=== PATIENT | female | born 1955 | race Caucasian/White ===

== ENCOUNTER → 2021-12-04 14:21 | Outpatient (CLI) | payer BC, SELFPAY ==
--- NOTE | ~2021-12-04 | XR_ITS ---
EXAMINATION: XR shoulder LT min 2V DATE: 12/04/2021 14:47 INDICATION: Left shoulder pain. TECHNIQUE: 4 views of left shoulder were obtained. COMPARISON: None. FINDINGS: Bone alignment is normal. No fracture. There is mild osteoarthritis of glenohumeral joint a nd acromioclavicular joint. IMPRESSION: 1. Mild polyarticular osteoarthritis. Reviewed, dictated and finalized at location B.
== END ==
PROVIDERS: PCP Internal Medicine; Visit Provider Internal Medicine
DX: M25.512 Pain in left shoulder (principal); M19.012 Primary osteoarthritis, left shoulder
CPT/HCPCS: 73030

== ENCOUNTER 2023-04-04 09:07 | Outpatient (CLI) | payer MEDICARE, SELFPAY ==
--- NOTE | ~2023-04-04 | MM_ITS ---
EXAMINATION: MM screening enma BI w treasure HISTORY: Screening TECHNIQUE: Craniocaudal and mediolateral oblique 3-D tomosynthesis images were obtained and synthetic 2-D images were generated. CAD analysis was submitted and interpreted. COMPARISON: No prior mammogram is available for comparison at this institution. BREAST PARENCHYMAL COMPOSITION: There are scattered areas of fibroglandular density. FINDINGS: There is no evidence of suspicious mass, calcification, or architectural distortion to sugg est malignancy in either breast. There has been no suspicious interval change. IMPRESSION: 1. No mammographic evidence of malignancy. 2. Recommend routine screening mammography in one year. BI-RADS Category 1: Negative Reviewed, dictated and finalized at location A.
== END 2023-04-04 09:08 | disposition home or self-care (01) ==
PROVIDERS: PCP Internal Medicine; Visit Provider Internal Medicine
DX: Z12.31 Encounter for screening mammogram for malignant neoplasm of breast (principal)
CPT/HCPCS: 77063; 77067

== ENCOUNTER 2023-12-18 18:33 | Inpatient (IN) | payer MEDICARE, SELFPAY ==
--- NOTE | ~2023-12-18 | US_ITS ---
US right upper quadrant INDICATION: Acute cholecystitis PROCEDURE: Realtime right upper abdominal ultrasound. COMPARISON: No prior studies for comparison. FINDINGS: The pancreas is normal without focal mass or pancreatic ductal dilation. Liver echotexture is normal without focal mass or intrahepatic biliary dilatation. There is normal directional flow i n the portal vein. Gallbladder contains stones. Gallbladder wall is thickened measuring 7 mm. Common bile duct measures 5 mm mm. Positive sonographic Renner's sign. IMPRESSION: 1: Cholelithiasis with gallbladder wall thickening and positive sonographic Renner's sign. Findings c ompatible with cholecystitis. Clinically correlate. Reviewed, dictated and finalized at location B. IMPRESSION: 1: Cholelithiasis with gallbladder wall thickening and positive sonographic Mur phy's sign. Findings compatible with cholecystitis. Clinically correlate.
--- NOTE | ~2023-12-18 | CT_ITS ---
EXAMINATION: CT abdomen pelvis w con DATE: 12/18/2023 20:31 INDICATION: Right upper quadrant abdominal pain, nausea, vomiting. TECHNIQUE: Computed tomography (CT) of the abdomen and pelvis was performed with 100 CC Omnipaque 350 intravenous contrast. Automated exposure control and iterative reconstruction technique were employe d. Exam dose: 869.64 mGy-cm total exam DLP. COMPARISON: None. FINDINGS: There is prominent multifocal atelectasis and/or consolidation at the bilateral lung bases. Cardiomegaly. Coronary artery calcifications. No pericardial or pleural effusion. There is severe fat stranding over a very large area around the gallbladder and hepatic flexure of th e colon. There is thickening of the anterior pararenal and lateroconal fascia on the right. There is gallbladder wall thickening. There are multiple gallstones. The gallbladder appears distended. The fi ndings are suggestive of acute cholecystitis with very prominent surrounding inflammatory change. The re is adjacent thickening of the wall of the hepatic flexure of the colon, without inflammatory collazo e around the hepatic flexure of the colon. Differential diagnosis includes colitis of the hepatic fle xure of the colon. However, I believe that the changes of the hepatic flexure of the colon are most l ikely secondary to the adjacent severe acute cholecystitis. No hepatic, splenic, pancreatic, adrenal or renal space-occupying mass lesion, urinary tract calculus or hydroureteronephrosis. There is atherosclerotic calcification with normal caliber of the abdominal aorta, iliac and femoral arteries. No intraperitoneal or retroperitoneal or pelvic mass lesion or adenopathy or ascites. The uterus and adnexal areas and urinary bladder are unremarkable. No bowel obstruction or intraperitoneal free air. Normal appendix. Small fat-containing umbilical hernia. Small supraumbilical fat-containing ventral abdominal wall her belkis. Small fat-containing inguinal hernias. Benign hemangioma of T9 vertebral body and L2 vertebral body. Moderate anterior wedge compression fracture of T11, mild anterior wedge compression fracture deformi ty of T12.. Severe degenerative disc disease at L4-5. No suspicious osteolytic or osteoblastic lesions are noted. IMPRESSION: Severe inflammatory changes around the gallbladder and hepatic flexure of the colon, wit h gallbladder wall thickening, multiple gallstones, gallbladder distention. The findings are most sug gestive of acute cholecystitis. The soft tissue thickening of the hepatic flexure of the colon in the pericolic fat stranding are tho ught to be secondary to the adjacent severe acute cholecystitis. Colitis however is not excluded. The remainder the colon however is unremarkable, again favoring acute cholecystitis as cause for the shaina nges in the colon and hepatic flexure. Reviewed, dictated and finalized at Location A. Reviewed, dictated and finalized at location A. IMPRESSION: Severe inflammatory changes around the gallbladder and hepatic fle xure of the colon, with gallbladder wall thickening, multiple gallstones, gallb ladder distention. The findings are most suggestive of acute cholecystitis. The soft tissue thickening of the hepatic flexure of the colon in the pericolic fat stranding are thought to be secondary to the adjacent severe acute cholecy stitis. Colitis however is not excluded. The remainder the colon however is unr emarkable, again favoring acute cholecystitis as cause for the changes in the c olon and hepatic flexure.
--- NOTE | ~2023-12-18 | XR_ITS ---
XR chest 1V portable DATE: 12/18/2023 21:30 INDICATION: Preoperative evaluation TECHNIQUE: Portable upright AP chest on December 18, 2023 at 2124 hours COMPARISON: None FINDINGS: There is prominent bibasilar infiltrate and subsegmental atelectasis. Mild elevation right diaphragm. Normal heart size. Mild aortic unfolding. The orogastric angles are not sharply defined. Cannot exclude right pleural effusion. No pneumothorax . Osteophytic change is demonstrated at the right glenohumeral joint. Osteopenia. IMPRESSION: Prominent bibasilar infiltrate and/or atelectasis Reviewed, dictated and finalized at location A.
--- NOTE | ~2023-12-18 | US_ITS ---
EXAMINATION: US perc cholecystostomy w imag DATE: 12/19/2023 12:05 INDICATION: Acute cholecystitis TECHNIQUE: The procedure including the risks and benefits was discussed with the patient. Risks discu ssed included bleeding including hemorrhage and bile peritonitis. Oral and written consent were obtai debo. The patient was confirmed to be receiving appropriate antibiotic coverage. The skin overlying t he liver and gallbladder was prepped and draped in usual sterile fashion. Anesthetic was administere d with 1% lidocaine subcutaneously. Conscious sedation was provided by the anesthesiology service. An 8.5 Fr catheter was inserted through liver parenchyma into the gallbladder by trocar technique. Th e metal stiffener and trocar needle were removed, and the pigtail tip was locked. Bile was aspirated and sent for culture. The catheter was stitched to the skin with suture. Antibiotic ointment and a st erile dressing were applied. The catheter was then attached to gravity drainage and was draining billy tional likely mild at the conclusion of the procedure. There were no immediate complications. FINDINGS: The gallbladder is dilated with wall thickening and stones and sludge, consistent with acut e cholecystitis. Ultrasound images demonstrate the catheter within the gallbladder. 50 mL blackish co lored bile was aspirated and sent to lab for Gram stain and cultures. Final images show the formed p igtail catheter tip in the gallbladder. IMPRESSION: 1. Successful ultrasound-guided cholecystostomy tube placement. 2. 50 mL bile was sent for aerobic, anaerobic, and fungal cultures. 3. The catheter will be managed by Dr. Mi. A catheter cholangiogram may be performed not less than 48 hours after tube placement if clinically indicated to assess cystic duct patency. If cholecystect cade is not eventually performed and the infectious episode has resolved, the tube may be removed over a guidewire, preferably not less than 3 weeks after placement to allow time for a mature catheter tr act to form to prevent bile leakage and peritonitis. Reviewed, dictated and finalized at location A. IMPRESSION: 1. Successful ultrasound-guided cholecystostomy tube placement. 2. 50 mL bile was sent for aerobic, anaerobic, and fungal cultures. 3. The catheter will be managed by Dr. Mi. A catheter cholangiogram may be pe rformed not less than 48 hours after tube placement if clinically indicated to assess cystic duct patency. If cholecystectomy is not eventually performed and the infectious episode has resolved, the tube may be removed over a guidewire, preferably not less than 3 weeks after placement to allow time for a mature ca theter tract to form to prevent bile leakage and peritonitis.
[2023-12-18 18:40] VITALS: BP 154/69; PULSE 104; RESP 23; TEMP 36.8; O2SAT 96
[2023-12-18] MEDS: SODIUM CHLORIDE 0.9% IV 1,000 ML 999 ML IV CONT (18:57)
[2023-12-18] MEDS: ONDANSETRON INJ 4 MG/2 ML VIAL IV PUSH (18:57)
[2023-12-18] MEDS: MORPHINE SULFATE (*CRX) 4 MG/ML INJ IV PUSH (18:57)
--- NOTE | 2023-12-18 19:10 | PC.NURSE ---
Assumed care of pt from KEYSHA Smith at this time. Pt resting comfortably in bed with call light within reach.
[2023-12-18 19:28] LABS: Basophils Percent Auto 0.2 % (0.2-1.2); Eosinophils Percent Auto 0.2 % (0-4.4); Hematocrit 40.3 % (37.0-47.0); Hemoglobin 13.5 g/dL (12.0-15.0); Immature Granulocyte Absolute 0.19 K/mm3 (0.00-0.031); Immature Granulocyte Percent A 1.1 % (0-0.5); Lymphocytes Absolute Auto 0.95 K/mm3 (0.9-3.2); Lymphocytes Percent Auto 5.7 % (18.3-44.2); Mean Corpuscular HGB Conc 33.5 g/dl (32-36); Mean Corpuscular Hemoglobin 30.9 pg (26-34); Mean Corpuscular Volume 92.2 fl (80-100); Mean Platelet Volume 10.5 fl (7.4-10.4); Monocytes Percent Auto 6.1 % (2.6-8.5); Neutrophils Absolute Auto 14.6 K/mm3 (1.3-6.7); Neutrophils Percent Auto 86.7 % (45.5-73.1); Platelet Count Result 225 k/mm3 (150-375); Red Blood Count 4.37 M/mm3 (4.2-5.4); Red Cell Distribution Width 13.1 % (11.5-14.5); White Blood Count 16.8 K/mm3 (4.5-10.0)
[2023-12-18 19:41] LABS: Alanine Aminotransferase 26 U/L (6-35); Albumin Level 3.7 g/dL (3.5-5.1); Alkaline Phosphatase 132 U/L (38-126); Anion Gap 9 mmol/L (4-12); Aspartate Amino Transferase 27 U/L (14-36); Bilirubin,Total 1.2 mg/dL (0.2-1.3); Blood Urea Nitrogen 19 mg/dL (7-17); Calcium 7.8 mg/dL (8.4-10.2); Carbon Dioxide 22 mmol/L (22-30); Chloride 97 mmol/L (98-107); Estimated CRCL calculation 67 ml/min; Estimated Glomerular Filt Rate 55; Glucose 129 mg/dL (65-110); Lactic Acid Reflex 1.4 mmol/L (0.7-2.0); Lipase 17 U/L (23-300); Potassium 3.2 mmol/L (3.4-5.0); Sodium 128 mmol/L (137-145)
--- NOTE | 2023-12-18 20:34 | ED.ABDPAIN ---
HPI - Abdominal Pain General Chief Complaint: Abdominal Pain Stated Complaint: vomiting Time Seen by Provider: 12/18/23 18:38 Source: patient Mode of arrival: ambulatory Limitations: no limitations History of Present Illness HPI narrative: 68-year-old with a history of hypothyroidism here with the complains of 2 day history of nausea and vomiting and right upper quadrant pain. Patient states that she may have had low-grade fever. She denies any diarrhea. No history of any cough or shortness of breath. MD elicited complaint: abdominal pain Onset (ago): day(s) (2) Pain Consistency: constant Location: RUQ Severity: moderate Quality: aching Radiation: RUQ Migration to: no migration Exacerbating factors: nothing Associated symptoms: denies other symptoms Related Data Home Medications Medication Instructions Recorded Confirmed cholecalciferol (vitamin D3) 10 10 mcg PO DAILY 07/18/20 10/24/23 mcg (400 unit) capsule zinc 50 mg tablet 50 mg PO DAILY 07/18/20 10/24/23 estradiol PO 10/23/23 10/24/23 liothyronine 5 mcg tablet 5 mcg PO DAILY 10/23/23 10/24/23 prasterone (dhea) 25 mg capsule 25 mg PO DAILY 10/23/23 10/24/23 (DHEA) progesterone micronized 200 mg 200 mg PO QHS 10/23/23 10/24/23 capsule s-adenosnyl 200 mg-collagen 13.33 cap PO 10/23/23 10/24/23 [id number] capsule DR (EB-A7 DR) sodium hyaluronate (viscosup) 10 16.8 mg intra-articular .every 6 10/23/23 10/24/23 mg/mL intra-articular syringe months Allergies Allergy/AdvReac Type Severity Reaction Status Date / Time oxycodone AdvReac Confusion Verified 12/18/23 19:03 Review of Systems Review of Systems: All systems reviewed & are unremarkable except as noted in HPI and below Constitutional: Constitutional: Reports no additional constitutional complaints Eyes: Eyes: Reports no additional eye complaints ENT: Reports system reviewed and no additional complaints, except as documented Cardiovascular: Cardiovascular: Reports no additional cardiovascular complaints Respiratory: Respiratory: Reports no additional respiratory complaints Gastrointestinal: Gastrointestinal: Reports as per HPI Genitourinary: Genitourinary: Reports no additional female genitourinary complaints Musculoskeletal: Musculoskeletal: Reports no additional musculoskeletal complaints PMFSH Past Medical History Medical History Compression fracture Family History Family History Father Patient's father is Social History Social History Smoking status: Never smoker Second hand tobacco smoke exposure: No Alcohol intake: never Substance use: never Lack of Transportation: No Lack of Food: Never True Current Housing: I Have Housing Concerned About Future Housing: No Difficulty Paying Gas/Electric Bills: No Difficulty Paying for Meds: No Currently Unemployed: No Education: Bachelor's Degree Difficulty w/ Childcare or Family Care: No Exam Narrative: GENERAL: Well-appearing, well-nourished, and in no acute distress. HEAD: Normocephalic, atraumatic. EYES: PERRLA and EOMI. ENT: Nares clear, no rhinorrhea or epistaxis. Mucous membranes moist. NECK: Supple. CHEST: Clear to auscultation. No respiratory distress. HEART: Regular rate and rhythm. No murmur heard. Normal peripheral pulses. ABDOMEN: Soft, tenderness in the right upper quadrant and epigastric area, nondistended, normal active bowel sounds. EXTREMITIES: Normal range of motion. No edema. SKIN: Warm, dry, no rash. NEURO: No focal deficits. Alert and oriented x3. PSYCH: Normal mood and affect. Course Course Emergency Course: Pain has slightly improved with the IV morphine and nausea well controlled with Zofran. She feels slightly better I did inform her about the lab work, CT findings. D
[2023-12-18 21:02] VITALS: BP 128/60; PULSE 88; RESP 16; O2SAT 95
[2023-12-18] MEDS: HYDROmorphone HCL INJ (*CRX) 1 MG/ML SYR IV PUSH (21:32)
[2023-12-18] MEDS: PIPERACILLN/TAZ 3.375GM/NS50ML 3.375 GM/50 ML BAG IVPB (21:32)
[2023-12-18 21:39] VITALS: BP 125/64; PULSE 92; RESP 17; O2SAT 95
[2023-12-18 21:44] VITALS: BP 125/64; PULSE 92; RESP 16; O2SAT 94
[2023-12-18 21:45] LABS: Appearance Urine Cloudy (Clear); Bacteria Urine 4+ /hpf; Bilirubin Urine Negative (Negative); Blood Urine 1+ (Negative); Color Urine Yellow (Yellow); Glucose Urine UA Trace mg/dL (Negative); Ketones Urine 1+ mg/dL (Negative); Leukocyte Esterase Ur Trace LEU/UL (Negative); Need Manual Microscopic Reviewed; Nitrate Urine Negative (Negative); Non Pathogenic Casts 0-2; Protein Urine 2+ mg/dL (Negative); Squamous Epithelial Cell Urine Moderate /hpf (Few); pH Urine 6.5 (5.0-9.0)
[2023-12-18 21:50] LABS: Specific Grav Ur 1.048 (1.001-1.035)
[2023-12-18 21:51] LABS: Add Urine Microscopic? YES
[2023-12-18 22:00] VITALS: BP 120/53; PULSE 92; RESP 18; TEMP 37.3; O2SAT 93; BMI 35.6
[2023-12-18] MEDS: SODIUM CHLORIDE 0.9% IV 1,000 ML 125 ML IV CONT (22:00)
--- NOTE | 2023-12-18 22:00 | ADMGEN ---
This patient, Debbie Max, was admitted to Medical Room 249-01. Patient/family oriented to hospital policies and general routines including ID bracelet, bed and alarms, visiting hours, pain management, procedures, bathroom and other care routines, personal items, smoking policy, room service/diet, and visiting hours. Information on how to activate the Rapid Response Team has been discussed. Patient/Family are encouraged to report perceived risks to care and to ask questions if they do not understand what they are told or what they should do.
[2023-12-18 22:34] LABS: INR 1.1
[2023-12-18 23:19] VITALS: TEMP 37.1
[2023-12-19] MEDS: HYDROmorphone HCL INJ (*CRX) 1 MG/ML SYR 0.5 MG IV PUSH ×2 (02:41→06:21)
[2023-12-19] MEDS: PIPERACILLN/TAZ 3.375GM/NS50ML 3.375 GM/50 ML BAG IVPB ×4 (02:41→20:02)
[2023-12-19] MEDS: ONDANSETRON INJ 4 MG/2 ML VIAL IV PUSH (02:41)
[2023-12-19 04:55] LABS: Basophils Percent Auto 0.1 % (0.2-1.2); Eosinophils Percent Auto 0.2 % (0-4.4); Hematocrit 35.8 % (37.0-47.0); Hemoglobin 11.9 g/dL (12.0-15.0); Immature Granulocyte Absolute 0.23 K/mm3 (0.00-0.031); Immature Granulocyte Percent A 1.6 % (0-0.5); Lymphocytes Absolute Auto 0.71 K/mm3 (0.9-3.2); Lymphocytes Percent Auto 5.1 % (18.3-44.2); Mean Corpuscular HGB Conc 33.2 g/dl (32-36); Mean Corpuscular Hemoglobin 31.2 pg (26-34); Mean Corpuscular Volume 93.7 fl (80-100); Mean Platelet Volume 9.6 fl (7.4-10.4); Monocytes Percent Auto 6.9 % (2.6-8.5); Neutrophils Percent Auto 86.1 % (45.5-73.1); Platelet Count Result 219 k/mm3 (150-375); Red Blood Count 3.82 M/mm3 (4.2-5.4); Red Cell Distribution Width 13.2 % (11.5-14.5)
[2023-12-19 05:07] LABS: Alanine Aminotransferase 35 U/L (6-35); Albumin Level 3.1 g/dL (3.5-5.1); Alkaline Phosphatase 192 U/L (38-126); Anion Gap 7 mmol/L (4-12); Aspartate Amino Transferase 41 U/L (14-36); Blood Urea Nitrogen 17 mg/dL (7-17); Calcium 7.1 mg/dL (8.4-10.2); Carbon Dioxide 22 mmol/L (22-30); Chloride 102 mmol/L (98-107); Estimated CRCL calculation 66 ml/min; Estimated Glomerular Filt Rate 55; Glucose 117 mg/dL (65-110); Lipase 14 U/L (23-300); Potassium 3.3 mmol/L (3.4-5.0); Sodium 131 mmol/L (137-145)
[2023-12-19 05:10] VITALS: BP 113/58; PULSE 89; RESP 18; TEMP 37.1; O2SAT 94
[2023-12-19] MEDS: SODIUM CHLORIDE 0.9% IV 1,000 ML 125 ML IV CONT (06:16)
[2023-12-19 08:00] VITALS: O2SAT 94
[2023-12-19] MEDS: HYDROmorphone HCL INJ (*CRX) 1 MG/ML SYR IV PUSH ×4 (08:23→20:01)
[2023-12-19] MEDS: POTASSIUM CHLORIDE INJ 40 MEQ in SODIUM CHLORIDE 0.9% IV 500 ML 130 MEQ IVPB (09:03)
--- NOTE | 2023-12-19 09:22 | PM.IMHP ---
H&P: HPI History of Present Illness Date/Time: 12/19/23 09:22 Chief Complaint: Right upper quadrant abdominal pain Narrative: This is a 68-year-old woman who presented to the ER last night with complaints of right upper quadrant abdominal pain, nausea, and vomiting for 5 days. He was at a wedding Saturday and ate barbecue ribs and brisket for dinner. That night, she developed nausea and vomiting. She had multiple episodes of vomiting with bilious-appearing emesis. This continued through the next day, but began to improved by Saturday. She reports noticing RUQ abdominal pain within the next 1-2 days after the vomiting started. her pain was intensifying and she has been unable to tolerate much oral intake. She felt feverish but had not taken her temperature. Due to persistent symptoms, she came into the ER yesterday evening. Labs showed a white blood cell count 21386, sodium 128, potassium 3.2, total bilirubin 1.2, AST 27, ALT 26, alk phos 132, lipase 17. CT scan of the abdomen and pelvis showed severe inflammatory changes around the gallbladder and hepatic flexure of the colon with gallbladder wall thickening, multiple gallstones, and gallbladder distention. Findings are suggestive of severe acute cholecystitis. She was started on IV Zosyn and is now seen on the medical floor. She has been made NPO with IV fluids. She had a chest x-ray that showed prominent bibasilar infiltrate and/or atelectasis. She reports her nausea and vomiting resolved a few days ago. Denies any nausea this morning. Continues to have right upper quadrant abdominal pain and is holding her abdomen with her right hand during my evaluation. She reports her pain is much better after receiving the IV Dilaudid. Pain is aggravated by deep breathing. Labs this morning show white blood cell count was down to 14,000. LFTs showed her AST was up slightly to 41 and alk-phos 192. No previous abdominal surgeries. Review of Systems Review of Systems: All systems reviewed & are unremarkable except as noted in HPI and below Constitutional: Constitutional: Reports as per HPI, Reports no additional constitutional complaints, Denies fatigue, Reports fever(s) and Reports poor appetite Eyes: Eyes: Reports no additional eye complaints ENT: Reports system reviewed and no additional complaints, except as documented, Denies dizziness and Denies headache(s) Cardiovascular: Cardiovascular: Reports no additional cardiovascular complaints, Denies chest pain and Denies leg edema Respiratory: Respiratory: Reports no additional respiratory complaints, Denies cough and Denies dyspnea Gastrointestinal: Gastrointestinal: Reports as per HPI, Reports no additional gastrointestinal complaints, Reports abdominal pain, Denies melena, Denies hematochezia, Denies coffee ground emesis, Denies constipation, Reports nausea, Reports vomiting and Denies hematemesis Genitourinary: Genitourinary: Reports no additional female genitourinary complaints and Denies dysuria Musculoskeletal: Musculoskeletal: Reports no additional musculoskeletal complaints and Denies abnormal gait Integumentary/Breasts: Skin/Breast: Reports system reviewed and no additional complaints, except as docu Neurologic: Reports system reviewed and no additional complaints, except as documented, Denies headache(s), Denies focal weakness, Denies numbness and Denies tingling PMFSH Past Medical History Medical History Compression fracture Hyperlipidemia Hypothyroidism Surgical History Surgical History (Updated 12/19/23 @ 09:31 by CHAIM Villasenor) History of elbow surgery Family History Family History Father Patient's father is Congestive heart failure Mother Social History Social History Smoking status: Never smoker Second hand toba
[2023-12-19 14:00] VITALS: BP 137/63; PULSE 95; RESP 21; TEMP 37; O2SAT 94
--- NOTE | 2023-12-19 18:09 | PC.NURSE ---
Addendum entered by Edel Cyr RN 12/19/23 18:10: wrong patient Original Note: 1730 Patient c/o SOB, audible wheezes noted. O2 2l sat 93%, Dr Alvares notified, bumex iv ordered.
[2023-12-19 20:09] VITALS: BP 124/53; PULSE 86; RESP 18; TEMP 37.3; O2SAT 94
[2023-12-20] VITALS (8 sets, daily range): BP systolic 124–138; BP diastolic 58–98; PULSE 72–78; RESP 18; TEMP 36.6–37.7; O2SAT 95–100
[2023-12-20] MEDS: SODIUM CHLORIDE 0.9% IV 1,000 ML 100 ML IV CONT (00:41)
[2023-12-20] MEDS: PIPERACILLN/TAZ 3.375GM/NS50ML 3.375 GM/50 ML BAG IVPB ×4 (02:58→20:13)
[2023-12-20] MEDS: HYDROmorphone HCL INJ (*CRX) 1 MG/ML SYR IV PUSH (03:31)
[2023-12-20 05:04] LABS: Basophils Percent Auto 0.2 % (0.2-1.2); Eosinophils Absolute Auto 0.1 K/mm3 (0-0.3); Eosinophils Percent Auto 1.3 % (0-4.4); Hematocrit 33.8 % (37.0-47.0); Hemoglobin 10.7 g/dL (12.0-15.0); Immature Granulocyte Percent A 0.9 % (0-0.5); Lymphocytes Absolute Auto 0.97 K/mm3 (0.9-3.2); Mean Corpuscular HGB Conc 31.7 g/dl (32-36); Mean Corpuscular Hemoglobin 30.2 pg (26-34); Mean Corpuscular Volume 95.5 fl (80-100); Mean Platelet Volume 9.2 fl (7.4-10.4); Monocytes Percent Auto 8.9 % (2.6-8.5); Neutrophils Absolute Auto 8.6 K/mm3 (1.3-6.7); Neutrophils Percent Auto 79.7 % (45.5-73.1); Platelet Count Result 228 k/mm3 (150-375); Red Blood Count 3.54 M/mm3 (4.2-5.4); Red Cell Distribution Width 13.3 % (11.5-14.5); White Blood Count 10.8 K/mm3 (4.5-10.0)
[2023-12-20 05:13] LABS: Alanine Aminotransferase 48 U/L (6-35); Alkaline Phosphatase 262 U/L (38-126); Anion Gap 7 mmol/L (4-12); Aspartate Amino Transferase 41 U/L (14-36); Blood Urea Nitrogen 12 mg/dL (7-17); Calcium 6.9 mg/dL (8.4-10.2); Carbon Dioxide 22 mmol/L (22-30); Chloride 103 mmol/L (98-107); Estimated CRCL calculation 66 ml/min; Estimated Glomerular Filt Rate 55; Glucose 114 mg/dL (65-110); Magnesium 2.4 mg/dL (1.6-2.3); Potassium 3.4 mmol/L (3.4-5.0); Sodium 132 mmol/L (137-145)
--- NOTE | 2023-12-20 11:45 | WPDPN ---
Progress Note: A&P Assessment and Plan (1) Acute cholecystitis: Code(s): K81.0 - Acute cholecystitis Status: Acute Assessment and Plan: Due to the severe nature inflammation of gallbladder phlegmon right upper quadrant was decided that additional treatment would be best done with compression of gallbladder with a ultrasound-guided percutaneous cholecystostomy tube placement done in Radiology. This was successfully done yesterday. She feels better today but still having some mild right upper quadrant tenderness. White blood cell count is decreased to 15,000 down to 11,000. liver enzymes are stable until the bilirubin is normal. Will continue on IV antibiotics today. She can be advanced to low-fat diet. Likely home tomorrow on course of oral antibiotics with a cholecystostomy tube in place. Within see her back in the office next week and then plan out an interval laparoscopic cholecystectomy in 4 to 6 weeks. Subjective Date/time seen: 12/20/23 11:45 Interval history: Patient feels better today. Less right upper quadrant pain. Last dose of IV pain medication was about 6hours ago. No nausea or vomiting. She did tolerate some low-fat food today after tolerating clear liquids yesterday. Ultrasound-guided placement of cholecystostomy tube was successfully yesterday. Cultures of the gallbladder bile is pending. White blood cell count decreased from 15,000 down to 10,800 today. Liver enzymes show mild elevations in AST ALT and alkaline phosphatase but total bilirubin is still normal at 1. . Exam GI: Other: Abdomen is soft and minimally distended. Still has some mild tenderness to palpation right upper quadrant. No rebound tenderness is noted today. Cholecystostomy tube drain in place. Output from drain is typical appearing non purulent bile. Is also nonbloody. Objective Data Vital Signs Vital Signs: Vital Signs - 24 hr 12/19/23 14:00 12/19/23 20:09 12/20/23 00:30 Temperature 37.0 C 37.3 C 37.7 C H Pulse Rate 95 86 Respiratory Rate 21 H 18 Blood Pressure 137/63 124/53 L Pulse Oximetry 94 94 Oxygen Delivery 12/20/23 05:00 12/20/23 05:55 12/20/23 08:03 Temperature 36.6 C 37.3 C Pulse Rate 78 Respiratory Rate 18 Blood Pressure 124/98 H Pulse Oximetry 95 Oxygen Delivery Room Air 12/20/23 08:45 Temperature Pulse Rate Respiratory Rate Blood Pressure Pulse Oximetry 96 Oxygen Delivery Room Air Intake/Output Intake/Output: Intake & Output 12/17/23 12/18/23 12/19/23 12/20/23 23:59 23:59 23:59 23:59 Intake Total 1000 3110 460 Output Total 525 500 Balance 1000 2585 -40 Meds/Results Medications: Active Medications Generic Name Dose Route Start Last Admin Trade Name Freq PRN Reason Stop Dose Admin Hydromorphone HCl 1 mg 12/19/23 07:37 12/20/23 03:31 Hydromorphone Hcl Inj (*Crx) 1 Mg/Ml Syr IV PUSH 1 mg Q4H PRN Administration Pain Rated 7-10 Sodium Chloride 1,000 mls @ 100 mls/hr 12/18/23 21:15 12/20/23 00:41 Normal Saline Iv IV CONT 100 mls/hr .Q10H ERICH Administration Piperacillin/Tazobactam/Dextrose 3.375 gm in 50 mls @ 100 mls/hr 12/19/23 03:00 12/20/23 09:46 Zosyn 3.375 Gm/Ns 50 Ml IVPB Infused Q6H ERICH Infusion Ondansetron HCl 4 mg 12/18/23 21:15 12/19/23 02:41 Ondansetron Inj 4 Mg/2 Ml Vial IV PUSH 4 mg Q4H PRN Administration Nausea Radiology Results: ITS Impressions Abdomen/Pelvis CT 12/18/23 20:36 IMPRESSION: Severe inflammatory changes around the gallbladder and hepatic flexure of the colon, with gallbladder wall thickening, multiple gallstones, gallbladder distention. The findings are most suggestive of acute cholecystitis. The soft tissue thickening of the hepatic flexure of the colon in the pericolic fat stranding are thought to be secondary to the adjacent severe acute cholecystitis. Colitis however is not excluded. The remainder the colon however is unremarkable,
[2023-12-20] MEDS: HYDROcodone/acetaminophen (*CRX) 5-325 MG TABLET 1 TAB PO ×2 (15:14→19:22)
[2023-12-21] MEDS: HYDROcodone/acetaminophen (*CRX) 5-325 MG TABLET 1 TAB PO ×2 (01:11→09:56)
[2023-12-21] MEDS: PIPERACILLN/TAZ 3.375GM/NS50ML 3.375 GM/50 ML BAG IVPB ×2 (03:04→08:10)
[2023-12-21 04:50] VITALS: BP 129/60; PULSE 77; RESP 18; TEMP 36.8; O2SAT 97
[2023-12-21 06:00] VITALS: BP 129/60; PULSE 77; RESP 18; TEMP 36.8; O2SAT 97
--- NOTE | 2023-12-21 09:42 | PM.DS ---
DS: Admitting Diagnosis Discharge Date 12/21/2023 Admitting Diagnosis Acute cholecystitis secondary to cholelithiasis DS: Discharge Diagnosis Discharge Diagnosis (1) Acute cholecystitis due to biliary calculus: Code(s): K80.00 - Calculus of gallbladder with acute cholecystitis without obstruction Status: Acute Assessment and Plan: Acute cholecystitis improving after placement of cholecystostomy tube. Patient will be discharged home today on oral antibiotics. Plan for interval laparoscopic cholecystectomy and about 4 to 6 weeks. DS: Summary Hospital Course Reason for hospitalization: Acute cholecystitis secondary to cholelithiasis Hospital Course: Patient can [facility] on 12/18/2023 where she was evaluated emergency room for severe right upper quadrant abdominal pain associated nausea and vomiting. She had pain for about 4 days prior to coming to the emergency room and thought she just had some food poisoning. In the emergency room showed an elevated white blood count [id number]. She was not hypotensive or tachycardic. She was started on IV antibiotics and admitted to surgical floor. CT scan abdomen pelvis showed a dilated inflamed appendix with reactive inflammation of the hepatic flexure of the colon and a pretty severe phlegmon in the right upper quadrant. Gallstones were noted on CT scan. She was kept NPO and surgical given IV pain medication as needed. She is placed on Zosyn for IV antibiotics. Today after she was admitted pain was somewhat improved but still have moderate to severe right upper quadrant pain with some localized peritoneal signs. An abdominal ultrasound was performed again showing a very thickened gallbladder wall and cholelithiasis consistent with acute cholecystitis. Liver enzymes were mildly elevated but total bilirubin was normal. Lipase was normal as well. I discussed with the patient the risk of converting to an open cholecystectomy given the degree of inflammation and I recommended proceeding with a decompression of the gallbladder with a image guided cholecystostomy tube placement in Radiology. She agreed with my plan and so later in the day she had a ultrasound guided cholecystostomy tube placement in Radiology without difficulty. Some of the bile was sent to microbiology. Preliminary results on the Gram stain from the bile showed some Gram-negative organisms. Patient is also have gram-negative organisms in her urine on urine culture from admission in the emergency room. However she does not complain of any dysuria, hematuria, or urinary frequency. Her white blood count decreased to 10,800 today after admission. She was then started on clear liquids which she tolerated well and she was advanced to a low-fat diet later today. On hospital day 3 she is doing well with a low-fat diet. Her pain was well controlled only with [place] for oral narcotic pain medication. She remained on Zosyn while admitted but will be discharged home on Augmentin. Her cholecystostomy tube was then placed in the dressing was intact and dry. Output from the drain was typical nonpurulent and nonbloody bile. She was afebrile and vital signs are stable. Her abdominal exam revealed much less right upper quadrant tenderness. The patient wanted to go home. The patient is discharged home. She is felt to be my office next week. She is to call for an appointment. Instructions for drain care and activity we are and her discharge orders. Prescriptions for [place] and Augmentin were sent to her pharmacy. She is to continue taking all her home medications. Status at Discharge Functional status at discharge: independent ambulation Overall status at discharge: patient is progressing back to baseline Time Spent with Patient Time attestation: Total time spent providing and/or coordinating discharge services: Time spent: Less than 30 minutes Exam GI: Other: Abdomen is obese but soft. Cholecystostomy tube drain in the right u
== END 2023-12-21 10:15 | disposition home or self-care (01) | DRG 446 ==
LOC: ANHED 21:22 → ANH2MED 21:30
PROVIDERS: Nurse Practitioner Family; Admitting Provider Surgery; Emergency Provider Family Medicine; PCP Internal Medicine; Visit Provider Surgery
DX: K80.00 Calculus of gallbladder with acute cholecystitis without obstruction (principal); B96.89 Other specified bacterial agents as the cause of diseases classified elsewhere; E03.9 Hypothyroidism, unspecified; E78.5 Hyperlipidemia, unspecified; E66.9 Obesity, unspecified; Z68.35 Body mass index [BMI] 35.0-35.9, adult
CPT/HCPCS: 36415; 47490; 71045; 74177; 76705; 80053; 81001; 83605; 83690; 83735; 85025; 85610; 87070; 87075; 87077; 87086; 87088; 87102; 87181; 87186; 87205; 87206; 96361; 96374; 96375; 99285; A9270; C1729; J1170; J2270; J2405; J2543; J3480; J7030; J7040; Q9967

== ENCOUNTER 2024-01-03 09:56 | Outpatient (CLI) | payer MEDICARE, SELFPAY ==
--- NOTE | ~2024-01-03 | XR_ITS ---
EXAMINATION: XR catheter cholangiogram DATE: 01/03/2024 10:36 INDICATION: Cholelithiasis and acute cholecystitis post cholecystostomy tube placement TECHNIQUE: Multiple fluoroscopic images of the right upper quadrant were obtained during injection of 20 mL Omnipaque 350 contrast into the patient's percutaneous cholecystostomy tube. The tube was flus hed with 10 mL sterile saline and reattached to gravity drainage at the conclusion of the procedure. FINDINGS: Injected contrast outlines an approximate 4 x 3 cm gallstone within the decompressed gallbladder. The loop of the cholecystostomy tube is positioned along side the gallstone at the fundus of the gallbla dder. Contrast extends through the cystic duct into the common bile duct which measures up to 7 mm in maximal diameter, tapering smoothly at the ampulla. There is free spillage of contrast into the duod enum with no evident choledocholithiasis. There is also some reflux of contrast into the normal-appea ring central intrahepatic biliary tree. IMPRESSION: 1. Percutaneous cholecystostomy tube and large gallstone within the decompressed gallbladder with pat ent cystic and common bile ducts with no choledocholithiasis. Reviewed, dictated and finalized at location A. IMPRESSION: 1. Percutaneous cholecystostomy tube and large gallstone within the decompresse d gallbladder with patent cystic and common bile ducts with no choledocholithia sis.
== END 2024-01-03 09:57 | disposition home or self-care (01) ==
LOC: ANHIMG 09:57
PROVIDERS: PCP Internal Medicine; Visit Provider Surgery
DX: K80.00 Calculus of gallbladder with acute cholecystitis without obstruction (principal); Z93.59 Other cystostomy status
CPT/HCPCS: 47531

== ENCOUNTER 2024-01-16 10:03 | Outpatient (CLI) | payer MEDICARE, SELFPAY ==
[2024-01-16 10:46] LABS: Amylase 64 U/L (30-110)
== END 2024-01-16 10:04 | disposition home or self-care (01) ==
LOC: ANHSURGERY 10:15
PROVIDERS: PCP Internal Medicine; Visit Provider Surgery
DX: Z01.818 Encounter for other preprocedural examination (principal); K80.10 Calculus of gallbladder with chronic cholecystitis without obstruction
CPT/HCPCS: 36415; 82150

== ENCOUNTER 2024-01-21 14:47 | Observation (INO) | payer MEDICARE, SELFPAY ==
--- NOTE | 2024-01-15 10:20 | PC.NURSE ---
Report to the Outpatient Waiting Room, entrance under the green pavilion located off [facility], at time ___7:00 AM____ on date __01/20/24 . Planned Procedure Time: _9:00AM . Time changes happen often and if your time is changed the preop area will call you the afternoon before. - You and your visitor will be asked to self-screen and do not enter if you have any COVID symptoms. - A mask is optional within the hospital at this time. Patients may have clear liquids (water, carbonated beverages, clear teas, apple juice) until 3 hours prior to surgery ( 6AM)with a maximum of 20 ounces. - No food from midnight until time of surgery - Infants may have breast milk until 4 hours before surgery, formula 6 hours prior to surgery. - Children will be allowed to drink immediately following surgery. If applicable, please bring a bottle or sippy cup to assist with drinking. Juice, water, soda, and popsicles are readily available. For infants on formula, please bring formula the day of surgery. Pacifiers are allowed. Take the following medications with a SIP of water the morning of surgery: ___LEVOTHYROXINE, LIOTHYRONINE DO NOT STOP ANY OF YOUR OTHER PRESCRIPTION MEDICATIONS PRIOR TO SURGERY ?EXCEPT THE FOLLOWING Medications to discontinue per physician ALL VITAMINS AND SUPPLEMENTS 3 DAY PRE OP LAST DOSE 01/16/24 Please no make-up, nail barbadian, hairspray, perfume, deodorant, or body powder the day of surgery. No jewelry (including any body piercings) or valuables the day of surgery, leave them at home. Please take a shower or bath the night before, or the morning of, surgery with an antibacterial soap. Wear comfortable, loose fitting clothing. Children are encouraged to wear pajamas. - Jewelry must be removed prior to entering the operating room. Rings and piercings that are not removed may be cut off. - The hospital will not accept responsibility for valuables. - Please leave all valuables, including medications, at home the day of surgery. If you are going home after surgery, a licensed patrol driver must drive you home. - NO public transportation without another adult if you receive anesthesia. - We recommend that an adult stay with you for 24 hours following discharge. - We also recommend that you do not drive, make important decision, drink alcoholic beverages, or take any drugs that were not prescribed by your health care provider for at least 24 hours after your discharge time. Follow any additional instructions given to you from your surgeon. If you or anyone in your household have experienced Covid symptoms in the past week, please notify your surgeon or the nurse liaison at the phone number below for possible testing. Telephone instructions given to __PATIENT and asked if any additional questions and then verbalized understanding. Patient advised to call surgeon office or pre surgery nurse liaison [phone] if any additional questions.
[2024-01-15 10:28] VITALS: BMI 35.2
[2024-01-20] VITALS (11 sets, daily range): BP systolic 120–151; BP diastolic 59–78; PULSE 77–98; RESP 10–18; TEMP 36.2–37.1; O2SAT 93–100
--- NOTE | 2024-01-20 07:17 | WPDHPUPDATE1 ---
History and Physical Update Update Date/Time: 01/20/24 07:17 History and Physical has been reviewed, including an updated exam of the patient. There are NO changes in the patient's condition. Risks, benefits, and alternatives have been discussed and questions answered. Patient agrees to proceed with procedure.
--- NOTE | 2024-01-20 07:50 | ECG_ITS ---
[facility] [address] Test Date: 2024-01-20 Pat Name: Debbie Max Department: Room: Gender: F Patient Resource Specialist: DAVID : 1955 Requested By: Benji Almeida Order Number: [id number] Delgado MD: Ronn Horner M.D. Measurements Intervals [place] Rate: 70 P: 20 [place]: 162 QRS: -21 QRSD: 97 T: 49 QT: 378 QTc: 409 Interpretive Statements SINUS RHYTHM BORDERLINE LEFT AXIS DEVIATION [QRS AXIS < -20] INCOMPLETE RIGHT BUNDLE BRANCH BLOCK [90+ ms QRS DURATION, TERMINAL R IN V1/V2, 40+ ms S IN I/aVL/V4/V5/V6] BORDERLINE ECG No previous ECG available for comparison Electronically Signed On 01-20-2024 14:46:06 CDT by Ronn Horner M.D.
[2024-01-20] MEDS: ACETAMINOPHEN 500 MG TABLET 1000 MG PO (08:16)
[2024-01-20] MEDS: KETOROLAC 15 MG/ML VIAL (*BKC) IV PUSH (08:24)
--- NOTE | 2024-01-20 08:34 | WPDANESEPPF ---
Anes - Initial Pre Proc Eval Procedure: Operation Date: 01/20/24 09:00 Proposed Procedures p Laparoscopic Cholecystectomy, Possible Open - Benji Mi MD Date/Time: 01/20/24 08:34 Surgeon: Benji Mi MD Pre Op Diagnosis: Chr Cholecystitis secondary to gallstones Patient Data Age: 68 Gender: F Height: 1.78 m Weight: 111.15 kg Allergies Allergy/AdvReac Type Severity Reaction Status Date / Time oxycodone AdvReac Confusion Verified 01/20/24 08:15 Home Medications Medication Instructions Recorded Confirmed Type levothyroxine 125 mcg tablet 125 mcg PO DAILY #90 tabs 09/19/23 01/20/24 Rx estradiol 1 applic vaginal DAILY 10/23/23 01/20/24 History liothyronine 5 mcg tablet 5 mcg PO DAILY 10/23/23 01/20/24 History prasterone (dhea) 25 mg capsule 25 mg PO DAILY 10/23/23 01/20/24 History (DHEA) progesterone micronized 200 mg 200 mg PO QHS 10/23/23 01/20/24 History capsule turmeric 400 mg capsule 400 mg PO DAILY 01/15/24 01/20/24 History Patient hx anesthesia problems: none Family hx anesthesia problems: none Results Review: All pre-operative results and documents have been reviewed as part of the pre-operative evaluation. [facility] Past Medical History Medical History Compression fracture Hyperlipidemia Hypothyroidism Surgical History Surgical History History of elbow surgery Family History Family History Father Patient's father is Congestive heart failure Mother Social History Social History Smoking status: Never smoker Second hand tobacco smoke exposure: No Alcohol intake: current Substance use: never Substance use type: does not use Do You Feel Safe in your Home?: Yes Lack of Transportation: No Lack of Food: Never True Current Housing: I Have Housing Concerned About Future Housing: No Difficulty Paying Gas/Electric Bills: No Difficulty Paying for Meds: No Currently Unemployed: No Education: Bachelor's Degree Difficulty w/ Childcare or Family Care: No Living arrangements: with family Spiritual care concerns: No Anes - Eval Final PreProcedure Day of Procedure 01/20/24 08:34 Patient weight: obese Heart: regular rate and rhythm Lungs: clear to auscultation Airway: Mallampati scale class II Neurological: alert and oriented Last oral intake: >/= 8 hours ASA classification: II Emergent: no Anesthetic plan: proceed Anesthesia type and monitoring: general ETT and standard monitoring Results Review: All pre-operative results and documents have been reviewed as part of the pre-operative evaluation. Informed Consent: The patient's anesthetic plan and its attendant risks and benefits were discussed with the patient/family/POA. Questions were solicited and answers provided to the satisfaction of the patient/family/POA.
[2024-01-20] MEDS: LACTATED RINGERS 1,000 ML 30 ML IV CONT ×2 (08:38→12:46)
[2024-01-20] MEDS: ceFAZolin 2 GM/D5W 50 ML 2 GM/50 ML BAG IVPB (09:40)
[2024-01-20] MEDS: LIDO 1%/EPINEPHRINE 1:100,000 50 ML VIAL 30 ML INFILTRATE (10:52)
[2024-01-20] MEDS: BUPivacaine HCL 0.5% PF 30 ML VIAL INFILTRATE (12:26)
--- NOTE | 2024-01-20 13:01 | PM.OP ---
Procedure Note - Brief Procedure Note - Brief Date of procedure: 01/20/24 Subacute cholecystitis secondary to cholelithiasis. Post-op diagnosis: Same Procedure performed: Laparoscopic cholecystectomy with extensive adhesiolysis. Surgeon: Benji Mi MD Anesthesia: GETA Implants: None Estimated blood loss (mL): 100 Drains: Yes (15 Nepalese round Tacos drain right upper quadrant) Packing: No Pathology: Yes (Gallbladder cystic duct node to pathology +very large gallstone) Complications: No immediate complications Condition: Stable Disposition: PACU
[2024-01-20] MEDS: fentaNYL CITRATE INJ (*CRX) 100 MCG/2 ML VIAL 25 MCG IV PUSH ×2 (13:07→13:11)
--- NOTE | 2024-01-20 14:26 | PC.NURSE ---
This patient, Debbie Max, was admitted to [facility] Surg Room 321-01. Patient/family oriented to hospital policies and general routines including ID bracelet, bed and alarms, visiting hours, pain management, procedures, bathroom and other care routines, personal items, smoking policy, room service/diet, and visiting hours. Information on how to activate the Rapid Response Team has been discussed. Patient/Family are encouraged to report perceived risks to care and to ask questions if they do not understand what they are told or what they should do.
[2024-01-20] MEDS: traMADol HCL (*CRX) 50 MG TABLET PO ×2 (15:37→21:19)
[2024-01-20] MEDS: MORPHINE SULFATE (*CRX) 4 MG/ML INJ IV PUSH (20:42)
[2024-01-21] MEDS: MORPHINE SULFATE (*CRX) 4 MG/ML INJ IV PUSH ×2 (01:21→08:49)
[2024-01-21] MEDS: traMADol HCL (*CRX) 50 MG TABLET PO (03:02)
[2024-01-21] MEDS: IBUPROFEN IV 800 MG/200 ML 800 MG/200 ML BAG 400 MG IVPB (04:05)
[2024-01-21 05:56] VITALS: BP 124/68; PULSE 92; RESP 20; TEMP 36.7; O2SAT 98
[2024-01-21] MEDS: LEVOTHYROXINE SODIUM 125 MCG TABLET PO (06:24)
[2024-01-21 06:46] LABS: Basophils Percent Auto 0.3 % (0.2-1.2); Eosinophils Percent Auto 0.1 % (0-4.4); Hematocrit 40.8 % (37.0-47.0); Hemoglobin 13.3 g/dL (12.0-15.0); Immature Granulocyte Absolute 0.08 K/mm3 (0.00-0.031); Immature Granulocyte Percent A 0.8 % (0-0.5); Lymphocytes Absolute Auto 0.76 K/mm3 (0.9-3.2); Lymphocytes Percent Auto 7.2 % (18.3-44.2); Mean Corpuscular HGB Conc 32.6 g/dl (32-36); Mean Corpuscular Hemoglobin 31.1 pg (26-34); Mean Corpuscular Volume 95.3 fl (80-100); Mean Platelet Volume 9.9 fl (7.4-10.4); Monocytes Absolute Auto 0.8 K/mm3 (0.1-0.6); Monocytes Percent Auto 7.5 % (2.6-8.5); Neutrophils Absolute Auto 8.8 K/mm3 (1.3-6.7); Neutrophils Percent Auto 84.1 % (45.5-73.1); Platelet Count Result 239 k/mm3 (150-375); Red Blood Count 4.28 M/mm3 (4.2-5.4); Red Cell Distribution Width 13.3 % (11.5-14.5); White Blood Count 10.5 K/mm3 (4.5-10.0)
[2024-01-21 07:07] LABS: Alanine Aminotransferase 72 U/L (6-35); Albumin Level 3.7 g/dL (3.5-5.1); Alkaline Phosphatase 69 U/L (38-126); Anion Gap 5 mmol/L (4-12); Aspartate Amino Transferase 83 U/L (14-36); Bilirubin,Total 0.8 mg/dL (0.2-1.3); Blood Urea Nitrogen 10 mg/dL (7-17); Calcium 8.3 mg/dL (8.4-10.2); Carbon Dioxide 27 mmol/L (22-30); Chloride 103 mmol/L (98-107); Estimated CRCL calculation 60 ml/min; Estimated Glomerular Filt Rate 50; Glucose 134 mg/dL (65-110); Potassium 4.1 mmol/L (3.4-5.0); Sodium 135 mmol/L (137-145)
--- NOTE | 2024-01-21 08:38 | WPDANESPN ---
Anes - Prog Note Post-Op Date/Time: 01/21/24 08:38 Cardiovascular status: normal Respiratory status: normal Airway patency: baseline Mental status: baseline Post-Op hydration status: normal Vital Signs: Last Vital Signs Temp 36.7 C 01/21/24 05:56 Pulse 92 01/21/24 05:56 Resp 20 01/21/24 05:56 BP 124/68 01/21/24 05:56 Pulse Ox 98 01/21/24 05:56 O2 Del Method Room Air 01/20/24 13:46 O2 Flow Rate 10 01/20/24 13:00 Pain Score (VAS): 12/26 I/O: Intake & Output 01/20/24 01/21/24 01/21/24 23:59 07:59 15:59 Intake Total 580 300 Output Total 35 Balance 580 265 Laboratory Tests 01/21/24 06:21 01/21/24 06:21 01/21/24 06:21 WBC 10.5 H RBC 4.28 Hgb 13.3 Hct 40.8 MCV 95.3 MCH 31.1 MCHC 32.6 RDW 13.3 Plt Count 239 MPV 9.9 Immature Gran % (Auto) 0.8 H Neut % (Auto) 84.1 H Lymph % (Auto) 7.2 L [place] % (Auto) 7.5 Eos % (Auto) 0.1 Baso % (Auto) 0.3 Lymph # (Auto) 0.76 L [place] # (Auto) 0.8 H Eos # (Auto) 0.0 Baso # (Auto) 0.0 Abs Immat Gran (auto) 0.08 H Absolute Neuts (auto) 8.8 H Absolute Nucleated RBC 0.000 Nucleated RBC % 0.0 Sodium 135 L Potassium 4.1 Chloride 103 Carbon Dioxide 27 Anion Gap 5 BUN 10 Creatinine 1.10 H Estim Creat Clear Calc 60 Estimated GFR 50 L Glucose 134 H Calcium 8.3 L Total Bilirubin 0.8 AST 83 H ALT 72 H Alkaline Phosphatase 69 Total Protein 6.0 L Albumin 3.7 Post-procedural complaints: none Patient Feedback: Patient satisfied with anesthetic care.
[2024-01-21] MEDS: LIOTHYRONINE SODIUM 5 MCG TABLET PO (08:48)
[2024-01-21] MEDS: PANTOPRAZOLE 40 MG TABLET PO (08:49)
--- NOTE | 2024-01-21 11:50 | W.PM.PROC2 ---
Procedure Note - Detailed Date of Procedure 01/21/24 Pre-op Diagnosis Chr Cholecystitis secondary to gallstones Post-op Diagnosis Same (Subacute cholecystitis secondary to cholelithiasis) Procedure Performed laparoscopic cholecystectomy with extensive intraoperative laparoscopic adhesiolysis. Surgeon Benji Mi MD Anesthesia General Indications Patient is a 68-year-old female who presented for admission to the hospital with severe right upper quadrant abdominal pain and had severe acute cholecystitis with right upper quadrant phlegmon about 6 weeks ago. She was initially treated with cholecystostomy tube drain placed in Radiology. She was eventually discharged from the hospital on oral antibiotics to allow the inflammation to improve. She had a cholecystostomy tube cholangiogram performed which showed contrast through a patent cystic duct into the common bile duct. The cholecystostomy tube was subsequent removed about 2 weeks ago. She now presents for attempted laparoscopic cholecystectomy. Findings Patient had findings of subacute cholecystitis. There was a very large gallstone filling the whole gallbladder. This made it difficult to grasp the gallbladder. There were copious and dense adhesions of the omentum to the gallbladder due to the prior inflammation. Description of Procedure After informed consent was obtained patient brought to the operating room she was placed supine position and general endotracheal anesthesia was administered. A [place] catheter was placed decompress the bladder. The abdomen was then prepped and draped usual sterile fashion. I 1st started by entering the abdomen left upper quadrant utilizing a 5mm Optiview port. Once inside the abdomen insufflated to adequate pneumoperitoneum of 15mmHg CO2. Looking around the umbilicus there were no adhesions in this area. I then placed a 5mm periumbilical trocar port. The looking to the upper portion of the abdomen I could see that there was many inflammatory adhesions of the omentum to the gallbladder. Gallbladder was dilated. The old fibrous track the old drain was seen. Then placed additional trocar ports in the right upper quadrant and epigastric region. I then took down the adhesions of the liver to the abdominal wall with the old drain tract was located. There is no electrocautery. I then spent the next 45minutes taking down adhesions of the omentum to the gallbladder wall so that could eventually see the infundibular gallbladder. This was a in order and amount of adhesiolysis done laparoscopically to allow the procedure to be done safely laparoscopic with conversion open cholecystectomy. There was about 100cc of blood loss which is about 3 to 4 times more than usual blood loss for a standard laparoscopic cholecystectomy. The total time for surgery was [id number] - 150minutes which was 2 to 3 times longer than a straight for laparoscopic cholecystectomy. The adhesiolysis done with a combination of blunt laparoscopic dissect ir and irrigation device dissection and hydrodissection with some judicious electrocautery. The colon was near this area and I tried to make sure there is no evidence of cautery damage to the colon. The duodenum and stomach was also near and there was no injury to the structures as well. Once I had infundibular gallbladder dissected out I then placed a laparoscopic grasper at the dome and elevated the gallbladder towards right shoulder. There was a very large gallstones filling the whole midportion of the gallbladder which made it difficult to hold. A 2nd grasper was then used to hold the gallbladder infundibulum and then I proceeded to dissect down along the infundibular gallbladder until I identified the cystic duct. The cystic duct node was anterior in this lymph node was dissected off of the artery and sent to pathology eventually with the gallbladder. The cystic artery was actually anterior to have both anterior and posterior branch which
[2024-01-21 14:00] VITALS: BP 117/59; PULSE 66; RESP 18; TEMP 35.8; O2SAT 96
[2024-01-21] MEDS: HYDROcodone/acetaminophen (*CRX) 5-325 MG TABLET 1 TAB PO (16:41)
--- NOTE | 2024-01-22 14:10 | PM.DS ---
DS: Admitting Diagnosis Discharge Date 01/21/24 Admitting Diagnosis Chronic cholecystitis with cholelithiasis DS: Discharge Diagnosis Discharge Diagnosis (1) Chronic cholecystitis with calculus: Code(s): K80.10 - Calculus of gallbladder with chronic cholecystitis without obstruction Status: Acute DS: Summary Hospital Course Reason for hospitalization: This is a 68-year-old woman who presented for an outpatient laparoscopic cholecystectomy by Dr. Orellana. She was followed in our office after being admitted to from 12/18/23-12/21/23 for acute cholecystitis treated with a percutaneous cholecystostomy tube. Cholangiogram was done and showed a?large gallstone within the decompressed gallbladder with patent cystic and common bile ducts with no choledocholithiasis, and decision was made to proceed with a laparoscopic cholecystectomy. Hospital Course: The patient underwent laparoscopic cholecystectomy with extensive intraoperative laparoscopic adhesiolysis by Dr. Orellana on 01/21/2024. During surgery she was found to have subacute cholecystitis secondary to cholelithiasis with a large gallstone filling the entire gallbladder. She had a VIJI drain placed during surgery and was admitted for observation postop. She received IV analgesics and oral analgesics for pain control postoperatively. Her diet was advanced to a low-fat diet, which she was tolerating postop day 1. Her pain was well controlled by the afternoon on postop day 1. She was up in the room and tolerating activity. No nausea or vomiting. VIJI drain had mostly serosanguineous drainage with just a slight bile-tinged appearance and was left in place on discharge. She was stable for discharge on postop day 1 and scheduled for follow up on Saturday with Dr. Orellana. Status at Discharge Functional status at discharge: independent ambulation Overall status at discharge: patient is progressing back to baseline Time Spent with Patient Time attestation: Total time spent providing and/or coordinating discharge services: Time spent: Greater than 30 minutes Exam Const: General: comfortable and no acute distress Resp: Effort & Inspection: normal respiratory effort Auscultation: clear to auscultation bilaterally Cardio: Rate: regular rate Rhythm: regular rhythm GI: Inspection: non-distended, incision (incisions dry and intact) and other (VIJI drain mostly serosanguinous with slight bile-tinged drainage) GI Palp: Yes Soft to palpation, Yes Tenderness to palpation present (GI) (incisional) and No Guarding due to palpation present (GI) Auscultation: normal bowel sounds Neuro: General: moves all extremities and no focal motor deficits Extrem: General: no edema Psych: Mental Status: mental status grossly normal Insight: Good insight present (Psych) DS: Data Data Completed and Pending Completed studies during hospitalization: Pending at discharge 01/20/24 12:36 Surgical [PTH] Routine Pending studies at discharge: Pending at discharge 01/20/24 11:01 Surgical [PTH] Routine Procedures/Treatments: Procedures Operation Date: 01/20/24 09:00 Actual Procedure Side Surgeon p Laparoscopic Cholecystectomy Not Applicable Benji Orellana MD Discharge Plan Discharge Attending physician on discharge: Benji Orellana Consulting providers: Ronn Horner; Hany Cui; Travis Higgins Discharging Clinician: Marylin Abbasi Anticipated Discharge Date/Time: 01/21/24 16:58 Patient Disposition: Home, Self-Care Activity: other - see discharge instructions Diet: low fat Wound Care Instructions: incision open to air Discharge Instructions: DISCHARGE INSTRUCTION SHEET FOR HERNIA, GALLBLADDER AND APPENDIX SURGERIES DR. ORELLANA 1. Only sponge bathe until VIJI drain has been removed. Empty and record VIJI drain output, and bring to your follow-up appointment. 2. Call office for: Wound increasingly painful or bleeding Vomiting Fever of gre
== END 2024-01-21 17:45 | disposition home or self-care (01) ==
LOC: ANHSURGERY 15:00 → ANH3MEDSUR 15:00
PROVIDERS: Admitting Provider Surgery; PCP Internal Medicine; Visit Provider Surgery
PROC: 0FT44ZZ Resection of Gallbladder, Percutaneous Endoscopic Approach (ICD-10-PCS; CPT 47562; principal; 2024-01-20 09:00)
DX: K80.10 Calculus of gallbladder with chronic cholecystitis without obstruction (principal); E03.9 Hypothyroidism, unspecified; E78.5 Hyperlipidemia, unspecified; E66.9 Obesity, unspecified; Z68.35 Body mass index [BMI] 35.0-35.9, adult
CPT/HCPCS: 47562; 36415; 80053; 85025; 88304; 93005; A9270; G0378; J0690; J1100; J1170; J1741; J1885; J2250; J2270; J2405; J2704; J3010; J7120

== ENCOUNTER 2024-01-26 17:43 | Inpatient (IN) | payer MEDICARE, SELFPAY ==
[2024-01-26] VITALS (15 sets, daily range): BP systolic 124–164; BP diastolic 65–76; PULSE 68–100; RESP 13–20; TEMP 36.4–37; O2SAT 95–99; BMI 33.8
--- NOTE | ~2024-01-26 | US_ITS ---
EXAMINATION: US guide abscess drainage DATE: 01/28/2024 12:17 INDICATION: Gallbladder fossa abscess post recent cholecystectomy TECHNIQUE: The procedure including the risks and benefits was discussed with the patient. Risks discu ssed included bleeding including hemorrhage and bile peritonitis. Oral and written consent were obtai debo. The patient was confirmed to be receiving appropriate antibiotic coverage. The skin overlying th e bladder fossa was prepped and draped in usual sterile fashion. Anesthetic was administered with 1% lidocaine subcutaneously. The adjacent splenic flexure of the colon was identified. An 8.5 Fr cathet er was inserted by trocar technique into the gallbladder fossa fluid collection through the space bet ween the hepatic flexure of the colon in the caudal margin of the liver utilizing continuous ultrasou nd observation. The metal stiffener and trocar needle were removed, and the pigtail tip was locked. 4 0 mL of fluid was aspirated. The catheter was then attached to suction drainage and was draining smal l amount of additional fluid. The catheter was stitched to the skin with suture. Antibiotic ointment and a sterile dressing were applied. There were no immediate complications. FINDINGS: Mildly complex, predominantly anechoic fluid collection measuring up to 6.1 x 5.2 cm the ga llbladder fossa. Subsequent images demonstrate the drainage catheter within the fluid collection. 40 mm of of relatively clear brownish colored fluid was aspirated. Final images show the formed pigtail catheter tip in the gallbladder fossa fluid collection. IMPRESSION: 1. Successful ultrasound-guided pigtail drainage catheter placement within a complex postcholecystect cade fluid collection at the gallbladder fossa. 2. 40 mL bile was sent to lab for aerobic and anaerobic cultures. 3. The catheter will be managed by Dr. Mi. Reviewed, dictated and finalized at location A. IMPRESSION: 1. Successful ultrasound-guided pigtail drainage catheter placement within a co mplex postcholecystectomy fluid collection at the gallbladder fossa. 2. 40 mL bile was sent to lab for aerobic and anaerobic cultures. 3. The catheter will be managed by Dr. Mi.
--- NOTE | ~2024-01-26 | NM_ITS ---
EXAMINATION: NM hepatobiliary wo pharm DATE: 01/27/2024 11:35 INDICATION: Gallbladder fossa fluid collection post cholecystectomy. Assess for bile leak/biloma COMPARISON: None. TECHNIQUE: 4.9 mCi Tc-99m mebrofenin (Choletec) was administered intravenously. Scintigraphic images of the abdomen were obtained for one hour. FINDINGS: There is normal clearance of radiotracer from the blood pool. There is homogeneous tracer u ptake by the liver. Activity progresses to the common bile duct and duodenum by 15 minutes with prog ressive accumulation of activity in the small bowel over the subsequent 45 minutes of imaging. No abn ormal perihepatic or gallbladder fossa activity to suggest bile leak/biloma. IMPRESSION: 1. Normal postcholecystectomy hepatobiliary scan with no evident bile leak/biloma. Reviewed, dictated and finalized at location A. IMPRESSION: 1. Normal postcholecystectomy hepatobiliary scan with no evident bile leak/hortencia ivone.
--- NOTE | ~2024-01-26 | CT_ITS ---
Clinical Indication: Back pain CT Scan of the Chest, Abdomen, and Pelvis with Contrast: Technique: Contiguous sections were acquired throughout the chest, abdomen, and pelvis after intraven ous administration of 100 cc of Omnipaque 350. Dose reduction technique was used on this scan by jeremy boone automated exposure control and iterative reconstruction technique. The dose-length product (DL P) was 1332.67 mGy-cm. COMPARISON: 12/18/2023 Findings: There is no evidence of any significant mediastinal, hilar or axillary lymphadenopathy. The mediastin al soft tissues appear normal. No definite pulmonary embolus seen. No aortic aneurysm or dissection. There is no evidence of pleural or pericardial effusion. The lungs are clear, aside from bibasilar atelectatic changes. The liver, spleen, pancreas, adrenals and kidneys are within normal limits. No evidence of aortic an eurysm. No lymphadenopathy. Cholecystectomy clips are present. There is a 9.3 x 6.2 x 7.1 cm ovoid fluid collection at the gallbl adder fossa, adjacent to the cholecystectomy clips. A percutaneous drainage catheter passes through t he collection, the tip is distal to (not within) the collection in the left upper quadrant. No bowel obstruction or bowel wall thickening. There is no evidence to suggest acute appendicitis. Th ere is nonspecific infiltrative change in the subcutaneous soft tissues in the anterior right upper q uadrant region (series 5 images 28-35 for example). Small ventral fat-containing hernia present in th e midline. Urinary bladder is unremarkable. No pelvic mass seen. No pelvic free fluid. T11 compression fracture present. Impression: Status post interval cholecystectomy. 9.3 x 6.2 x 7.1 cm ovoid fluid collection in the gallbladder fo ssa, diagnostic considerations of seroma, abscess, biloma. Correlate for signs and symptoms of infect ion. Consider HIDA scan to evaluate for bile leak/biloma. Percutaneous drainage catheter passes through the collection, however the tip is not within the colle ction. Nonspecific infiltrative changes in the anterior subcutaneous soft tissues in the right upper quadran t, as detailed above, nonspecific. Correlate with physical exam. Focal inflammatory process or postpr ocedural change are considerations. No definite pulmonary embolus seen. Bibasilar atelectatic changes in the lungs. Chronic appearing T11 compression fracture. Reviewed, dictated and finalized at location M. Impression: Status post interval cholecystectomy. 9.3 x 6.2 x 7.1 cm ovoid fluid collection in the gallbladder fossa, diagnostic considerations of seroma, abscess, biloma . Correlate for signs and symptoms of infection. Consider HIDA scan to evaluate for bile leak/biloma. Percutaneous drainage catheter passes through the collection, however the tip i s not within the collection. Nonspecific infiltrative changes in the anterior subcutaneous soft tissues in t he right upper quadrant, as detailed above, nonspecific. Correlate with physica l exam. Focal inflammatory process or postprocedural change are considerations. No definite pulmonary embolus seen. Bibasilar atelectatic changes in the lungs. Chronic appearing T11 compression fracture.
--- NOTE | 2024-01-26 18:00 | ECG_ITS ---
[facility] [address] Test Date: 2024-01-26 Pat Name: Debbie Max Department: Room: Gender: F Claim Taker: GILLIAN : 1955 Requested By: Jessica Wei Order Number: [id number] Delgado MD: Ronn Horner M.D. Measurements Intervals [place] Rate: 91 P: 26 [place]: 149 QRS: -23 QRSD: 93 T: 53 QT: 350 QTc: 432 Interpretive Statements SINUS RHYTHM BORDERLINE LEFT AXIS DEVIATION [QRS AXIS < -20] LOW QRS VOLTAGE IN PRECORDIAL LEADS [QRS DEFLECTION < 1.0 mV IN CHEST LEADS] INCOMPLETE RIGHT BUNDLE BRANCH BLOCK [90+ ms QRS DURATION, TERMINAL R IN V1/V2, 40+ ms S IN I/aVL/V4/V5/V6] ABNORMAL ECG Compared to ECG 01/20/2024 07:11:13 NO DIFFERENCE Electronically Signed On 01-27-2024 08:07:02 CDT by Ronn Horner M.D.
[2024-01-26 18:14] LABS: Basophils Percent Auto 0.5 % (0.2-1.2); Eosinophils Absolute Auto 0.2 K/mm3 (0-0.3); Eosinophils Percent Auto 2.5 % (0-4.4); Hematocrit 39.1 % (37.0-47.0); Hemoglobin 12.8 g/dL (12.0-15.0); Immature Granulocyte Absolute 0.04 K/mm3 (0.00-0.031); Immature Granulocyte Percent A 0.7 % (0-0.5); Lymphocytes Absolute Auto 1.53 K/mm3 (0.9-3.2); Lymphocytes Percent Auto 25.4 % (18.3-44.2); Mean Corpuscular HGB Conc 32.7 g/dl (32-36); Mean Corpuscular Hemoglobin 30.6 pg (26-34); Mean Corpuscular Volume 93.5 fl (80-100); Mean Platelet Volume 9.2 fl (7.4-10.4); Monocytes Absolute Auto 0.5 K/mm3 (0.1-0.6); Neutrophils Absolute Auto 3.8 K/mm3 (1.3-6.7); Neutrophils Percent Auto 62.9 % (45.5-73.1); Platelet Count Result 251 k/mm3 (150-375); Red Blood Count 4.18 M/mm3 (4.2-5.4); Red Cell Distribution Width 13.2 % (11.5-14.5)
[2024-01-26 18:22] LABS: Alanine Aminotransferase 48 U/L (6-35); Albumin Level 3.9 g/dL (3.5-5.1); Alkaline Phosphatase 94 U/L (38-126); Anion Gap 6 mmol/L (4-12); Aspartate Amino Transferase 31 U/L (14-36); Bilirubin,Total 0.5 mg/dL (0.2-1.3); Blood Urea Nitrogen 11 mg/dL (7-17); Calcium 8.5 mg/dL (8.4-10.2); Carbon Dioxide 25 mmol/L (22-30); Chloride 100 mmol/L (98-107); Estimated CRCL calculation 56 ml/min; Estimated Glomerular Filt Rate 45; Glucose 148 mg/dL (65-110); Potassium 3.8 mmol/L (3.4-5.0); Sodium 131 mmol/L (137-145)
[2024-01-26 18:23] LABS: INR 0.9; Prothrombin Time 12.7 Seconds (11.1-14.7)
[2024-01-26 18:24] LABS: Partial Thromboplastin Time 27.1 Seconds (22.3-36.8)
[2024-01-26 18:34] LABS: NT Pro B Type Natriuretic Pept 175 pg/mL (19.9-100); Troponin I < 0.012 ng/mL (0.000-0.034)
--- NOTE | 2024-01-26 18:38 | ED.BACK ---
HPI - Back Pain/Injury General Chief Complaint: Back Pain/Injury <LUPE Rivera Last Filed: 01/26/24 20:36> Stated Complaint: back pain post op <LUPE Rivera Last Filed: 01/26/24 20:36> Time Seen by Provider: 01/26/24 18:00 <LUPE Rivera Last Filed: 01/26/24 20:36> Source: patient and old records reviewed <LUPE Rivera Last Filed: 01/26/24 20:36> Mode of arrival: ambulatory <LUPE Rivera Last Filed: 01/26/24 20:36> Limitations: no limitations <LUPE Rivera Last Filed: 01/26/24 20:36> History of Present Illness HPI Narrative: Patient is a 68-year-old female who presents the ED with report of right upper back pain. Patient reports she underwent cholecystectomy with extensive intraoperative laparoscopic adhesiolysis on 01/[address] Mi. States she was admitted overnight due to her gallbladder being very large. She currently has a cholecystostomy tube in place. Draining small amount of green-brown liquid. States over the last several days, she has had pain in her right upper abdomen and back, worse with taking deep breaths. She has had pain at rest as well. She has not taken anything for the pain. Denies feeling short of breath. Denies dyspnea on exertion. Denies nausea, vomiting, diarrhea, constipation, fevers. <LUPE Rivera Last Filed: 01/26/24 20:36> Related Data Home Medications: Home Medications Medication Instructions Recorded Confirmed estradiol 1 applic vaginal DAILY 10/23/23 01/26/24 liothyronine 5 mcg tablet 5 mcg PO DAILY 10/23/23 01/26/24 prasterone (dhea) 25 mg capsule 25 mg PO DAILY 10/23/23 01/26/24 (DHEA) progesterone micronized 200 mg 200 mg PO QHS 10/23/23 01/26/24 capsule turmeric 400 mg capsule 400 mg PO DAILY 01/15/24 01/26/24 <Jessica Salas PA-C - Last Filed: 01/26/24 20:36> Allergies/Adverse Reactions: Allergies Allergy/AdvReac Type Severity Reaction Status Date / Time oxycodone AdvReac Confusion Verified 01/20/24 08:15 <Jessica Salas PA-C - Last Filed: 01/26/24 20:36> Review of Systems Review of Systems: CONSTITUTIONAL: Denies fever, chills, or sweats. RESPIRATORY: See HPI. GASTROINTESTINAL: See HPI. GENITOURINARY: Denies dysuria or hematuria. MUSCULOSKELETAL: See HPI. <Jessica Salas PA-C - Last Filed: 01/26/24 20:36> All systems reviewed & are unremarkable except as noted in HPI and below <Jessica Salas PA-C - Last Filed: 01/26/24 20:36> PMFSH Past Medical History Medical History: Medical History Compression fracture Hyperlipidemia Hypothyroidism <Jessica Salas PA-C - Last Filed: 01/26/24 20:36> Surgical History Surgical History: Surgical History History of elbow surgery <Jessica Salas PA-C - Last Filed: 01/26/24 20:36> Family History Family History: Family History Father Patient's father is Congestive heart failure Mother <Jessica Salas PA-C - Last Filed: 01/26/24 20:36> Social History Social History: Social History Smoking status: Never smoker Second hand tobacco smoke exposure: No Alcohol intake: never Substance use: never Substance use type: does not use Do You Feel Safe in your Home?: Yes Lack of Transportation: No Lack of Food: Never True Current Housing: I Have Housing Concerned About Future Housing: No Difficulty Paying Gas/Electric Bills: No Difficulty Paying for Meds: No Currently Unemployed: No Education: Bachelor's Degree Difficulty w/ Childcare or Family Care: No Living arrangements: with family Spiri
[2024-01-26] MEDS: PIPERACILLN/TAZ 3.375GM/NS50ML 3.375 GM/50 ML BAG IVPB (21:04)
--- NOTE | 2024-01-26 22:04 | ADMGEN ---
This patient, Debbie Max, was admitted to Medical Room 342-01. Patient/family oriented to hospital policies and general routines including ID bracelet, bed and alarms, visiting hours, pain management, procedures, bathroom and other care routines, personal items, smoking policy, room service/diet, and visiting hours. Information on how to activate the Rapid Response Team has been discussed. Patient/Family are encouraged to report perceived risks to care and to ask questions if they do not understand what they are told or what they should do.
[2024-01-26] MEDS: MORPHINE SULFATE (*CRX) 4 MG/ML INJ IV PUSH (22:28)
[2024-01-27] MEDS: PIPERACILLN/TAZ 3.375GM/NS50ML 3.375 GM/50 ML BAG IVPB ×4 (03:07→21:01)
[2024-01-27 06:00] VITALS: BP 140/71; PULSE 70; RESP 16; TEMP 36.4; O2SAT 95
[2024-01-27 08:00] VITALS: O2SAT 97
--- NOTE | 2024-01-27 09:05 | PM.IMHP ---
H&P: HPI History of Present Illness Date/Time: 01/27/24 09:05 Chief Complaint: Back pain Narrative: This is a 68-year-old woman who is known to our service from a recent laparoscopic cholecystectomy with extensive intraoperative laparoscopic adhesiolysis by Dr. Mi on 01/20/2024 for chronic cholecystitis with cholelithiasis. She was found to have subacute cholecystitis and a very large gallstone with dense adhesions of the omentum to the gallbladder during surgery. VIJI drain placed and monitored postoperatively. Postop day 1, she was tolerating a diet and was discharged home with her VIJI drain as there was some concern for possible bilious drainage from the VIJI. She was actually scheduled to see Dr. Mi today in our office for possible VIJI drain removal. The patient has been monitoring the VIJI drain output and there has been less than 30 cc daily since discharge. Over the weekend, she was only having less than 15 cc daily. Over the past few days, she has began to notice sharp, intermittent right upper back pain that would come and go. She also noticed some right upper quadrant abdominal pain that seemed to be aggravated when she was lying on her left side and deep breathing. Denies any fever, chills, nausea, vomiting, or any other complaints. Her pain progressively got worse and she decided to come back to the ER for evaluation last night. Labs showed a normal white blood cell count of 6000, sodium 131, BUN 11, creatinine 1.2, bilirubin 0.5, AST 31, ALT 48, and alk-phos 94. AST and ALT down from postop day 1 labs. Troponin negative. CTA of the chest abdomen and pelvis showed a 9.3 x 6.2 x 7.1 cm fluid collection in the gallbladder fossa, which could be seroma, abscess, or biloma. VIJI drain tip on CT goes past the fluid collection and is not within it. No pulmonary embolus. Bibasilar atelectatic changes in the lungs. Also seen are nonspecific infiltrative changes in the anterior subcutaneous soft tissues in the right upper quadrant, could be focal inflammatory process or postprocedural change. Patient was admitted for further workup of the postoperative fluid collection in the gallbladder fossa. She is now seen on the medical floor. She was started on IV Zosyn. HIDA scan has been ordered. Review of Systems Review of Systems: All systems reviewed & are unremarkable except as noted in HPI and below PMFSH Past Medical History Medical History Compression fracture Hyperlipidemia Hypothyroidism Surgical History Surgical History History of elbow surgery History of laparoscopic cholecystectomy 01/20/24 - laparoscopic cholecystectomy with extensive intraoperative laparoscopic adhesiolysis Family History Family History Father Patient's father is Congestive heart failure Mother Social History Social History Smoking status: Never smoker Second hand tobacco smoke exposure: No Alcohol intake: never Substance use: never Substance use type: does not use Do You Feel Safe in your Home?: Yes Lack of Transportation: No Lack of Food: Never True Current Housing: I Have Housing Concerned About Future Housing: No Difficulty Paying Gas/Electric Bills: No Difficulty Paying for Meds: No Currently Unemployed: No Education: Bachelor's Degree Difficulty w/ Childcare or Family Care: No Living arrangements: with family Spiritual care concerns: No Meds Home Medications and Allergies Home Medications Medication Instructions Recorded Confirmed Type levothyroxine 125 mcg tablet 125 mcg PO DAILY #90 tabs 09/19/23 01/26/24 Rx estradiol 1 applic vaginal DAILY 10/23/23 01/26/24 History liothyronine 5 mcg tablet 5 mcg PO DAILY 10/23/23 01/26/24 History prasterone (dhea) 25
[2024-01-27 14:00] VITALS: BP 139/73; PULSE 76; RESP 18; TEMP 36.9; O2SAT 97
[2024-01-27] MEDS: SODIUM CHLORIDE 0.9% IV 1,000 ML 100 ML IV CONT (18:06)
[2024-01-27] MEDS: ACETAMINOPHEN 325 MG TABLET 650 MG PO (18:09)
[2024-01-27 21:19] VITALS: BP 150/75; PULSE 75; RESP 18; TEMP 36.2; O2SAT 96
[2024-01-28] MEDS: PIPERACILLN/TAZ 3.375GM/NS50ML 3.375 GM/50 ML BAG IVPB ×2 (02:43→08:46)
[2024-01-28] MEDS: SODIUM CHLORIDE 0.9% IV 1,000 ML 100 ML IV CONT (02:44)
[2024-01-28] MEDS: LEVOTHYROXINE SODIUM 125 MCG TABLET PO (05:35)
[2024-01-28 05:45] VITALS: BP 156/79; PULSE 82; RESP 14; TEMP 36.1; O2SAT 100
[2024-01-28 06:27] LABS: Mean Platelet Volume 9.4 fl (7.4-10.4); Platelet Count Result 256 k/mm3 (150-375)
[2024-01-28 06:38] LABS: Prothrombin Time 13.6 Seconds (11.1-14.7)
[2024-01-28 06:39] LABS: Partial Thromboplastin Time 29.8 Seconds (22.3-36.8)
[2024-01-28] MEDS: LIOTHYRONINE SODIUM 5 MCG TABLET PO (08:46)
--- NOTE | 2024-01-28 09:31 | WPDPN ---
Progress Note: A&P Assessment and Plan (1) Intraabdominal fluid collection: Code(s): R18.8 - Other ascites Status: Acute Assessment and Plan: Patient remains clinically stable. Keep her on IV antibiotics for right now. White blood count is normal. I suspect the fluid collection right upper quadrant is likely either hematoma or biloma which has now stopped since there was no leaking on HIDA scan which was done yesterday. Will plan on removing the abdominal surgical drain. Arrangements have been made for an ultrasound-guided percutaneous drainage of the fluid collection in Radiology today. Hopefully she tolerated this well she feels better than she can go home the pigtail drain in place and have that removed in the office in a few days. Subjective Date/time seen: 01/28/24 09:31 Interval history: Patient without acute changes today. She is anxious to get the right upper quadrant fluid collection drained. She remains NPO since midnight waiting to get the drain placed. Otherwise no fever. White blood count is normal. Has a mild amount of her back and shoulder pain but that is stable. No fever overnight no tachycardia. Exam GI: Other: Abdomen is soft and nondistended. Right upper quadrant surgical drain in place. Minimal if any output. No guarding or generalized peritoneal signs. Port site incisions are healing well. Objective Data Vital Signs Vital Signs: Vital Signs - 24 hr 01/27/24 14:00 01/27/24 21:19 01/27/24 20:00 Temperature 36.9 C 36.2 C L Pulse Rate 76 75 Respiratory Rate 18 18 Blood Pressure 139/73 150/75 H Pulse Oximetry 97 96 Oxygen Delivery Room Air 01/28/24 05:45 01/28/24 08:00 Temperature 36.1 C L Pulse Rate 82 Respiratory Rate 14 Blood Pressure 156/79 H Pulse Oximetry 100 Oxygen Delivery Room Air Intake/Output Intake/Output: Intake & Output 01/25/24 01/26/24 01/27/24 01/28/24 23:59 23:59 23:59 23:59 Intake Total 50 800 1213.3 Output Total 2205 Balance 50 -1405 1213.3 Meds/Results Medications: Active Medications Generic Name Dose Route Start Last Admin Trade Name Freq PRN Reason Stop Dose Admin Acetaminophen 650 mg 01/26/24 20:27 01/27/24 18:09 Acetaminophen 325 Mg Tablet PO 650 mg Q4H PRN Administration Mild Pain (1-3) or Fever Piperacillin/Tazobactam/Dextrose 3.375 gm in 50 mls @ 100 mls/hr 01/27/24 03:00 01/28/24 08:46 Zosyn 3.375 Gm/Ns 50 Ml IVPB 100 mls/hr Q6H ERICH Administration Sodium Chloride 1,000 mls @ 100 mls/hr 01/27/24 09:10 01/28/24 02:44 Normal Saline Iv IV CONT 100 mls/hr .Q10H ERICH Administration Levothyroxine Sodium 125 mcg 01/27/24 10:00 01/28/24 05:35 Levothyroxine Sodium 125 Mcg Tablet PO 125 mcg DAILY@0630 ERICH Administration Liothyronine Sodium 5 mcg 01/27/24 11:00 01/28/24 08:46 Liothyronine Sodium 5 Mcg Tablet PO 5 mcg DAILY ERICH Administration Morphine Sulfate 4 mg 01/26/24 20:27 01/26/24 22:28 Morphine Sulfate (*Crx) 4 Mg/Ml Inj IV PUSH 4 mg Q2H PRN Administration Pain Rated 7-10 Ondansetron HCl 4 mg 01/26/24 20:27 Ondansetron Inj 4 Mg/2 Ml Vial IV PUSH Q4H PRN Nausea Radiology Results: ITS Impressions Chest/Abdomen/Pelvis CTA 01/26/24 19:26 Impression: Status post interval cholecystectomy. 9.3 x 6.2 x 7.1 cm ovoid fluid collection in the gallbladder fossa, diagnostic considerations of seroma, abscess, biloma. Correlate for signs and symptoms of infection. Consider HIDA scan to evaluate for bile leak/biloma. Percutaneous drainage catheter passes through the collection, however the tip is not within the collection. Nonspecific infiltrative changes in the anterior subcutaneous soft tissues in the right upper quadrant, as detailed above, nonspecific. Correlate with physical exam. Focal inflammatory process or postprocedural change are considerations. No definite pulmonary embolus seen.
[2024-01-28 14:00] VITALS: BP 144/79; PULSE 88; RESP 18; TEMP 36.7; O2SAT 97
--- NOTE | 2024-01-28 15:30 | PC.NURSE ---
Call made to Dr. Mao office. Pt would like to know if she would be able to go home today. Pt tolerating perc drain placement.
--- NOTE | 2024-01-28 15:44 | PM.DS ---
DS: Admitting Diagnosis Discharge Date 01/28/24 Admitting Diagnosis Intraabdominal fluid collection Hx of laparoscopic cholecystectomy Chronic cholecystitis with cholelithiasis DS: Discharge Diagnosis Discharge Diagnosis (1) Intraabdominal fluid collection: Code(s): R18.8 - Other ascites Status: Acute (2) History of cholecystectomy: Code(s): Z90.49 - Acquired absence of other specified parts of digestive tract Status: Acute (3) Chronic cholecystitis with calculus: Code(s): K80.10 - Calculus of gallbladder with chronic cholecystitis without obstruction Status: Acute DS: Summary Hospital Course Reason for hospitalization: This is a 68-year-old woman who is known to our service from a recent laparoscopic cholecystectomy with extensive intraoperative laparoscopic adhesiolysis by Dr. Mi on 01/20/2024 for chronic cholecystitis with cholelithiasis. She was found to have subacute cholecystitis and a very large gallstone with dense adhesions of the omentum to the gallbladder during surgery. VIJI drain placed and monitored postoperatively. Postop day 1, she was tolerating a diet and was discharged home with her VIJI drain as there was some concern for possible bilious drainage from the VIJI. She was scheduled to see Dr. Mi in follow-up this week and returned to the ER for worsening RUQ and right upper abdominal pain. Workup in the ER showed a normal WBC count and LFTs improved since discharge with only mild elevated of ALT. CTA of the chest abdomen and pelvis showed a 9.3 x 6.2 x 7.1 cm fluid collection in the gallbladder fossa, which could be seroma, abscess, or biloma. VIJI drain tip on CT goes past the fluid collection and is not within it. No pulmonary embolus. Bibasilar atelectatic changes in the lungs. Also seen are nonspecific infiltrative changes in the anterior subcutaneous soft tissues in the right upper quadrant, could be focal inflammatory process or postprocedural change. Patient was admitted for further workup of the postoperative fluid collection in the gallbladder fossa. Hospital Course: She was started on IV Zosyn. HIDA ordered and negative for bile leak. US-guided percutaneous drainage of the fluid collection ordered and performed by Radiology today. The drainage removed by the Radiologist was bilious-appearing and fluid sent for cultures. Her diet was advance and she is tolerating this well. Abdominal pain is better controlled and no longer requiring IV analgesics. Discussed the case with Dr. Mi who is okay with her discharge today. Will have her VIJI Drain removed prior to discharge. Time spent discussing smoking cessation with patient: 3 to 10 minutes Status at Discharge Functional status at discharge: independent ambulation Overall status at discharge: patient is progressing back to baseline Time Spent with Patient Time attestation: Total time spent providing and/or coordinating discharge services: Time spent: Less than 30 minutes DS: Data Data Completed and Pending Labs on day of discharge: Labs from last 24 hours 01/28/24 05:35 Plt Count 256 MPV 9.4 PT 13.6 INR 1.0 APTT 29.8 Preliminary micro results at discharge 01/26/24 21:00 Blood Culture - Preliminary Blood 01/26/24 21:00 Blood Culture - Preliminary Blood Procedures/Treatments: EXAMINATION: US guide abscess drainage DATE: 01/28/2024 12:17 INDICATION: Gallbladder fossa abscess post recent cholecystectomy TECHNIQUE: The procedure including the risks and benefits was discussed with the patient. Risks discussed included bleeding including hemorrhage and bile peritonitis. Oral and written consent were obtained. The patient was confirmed to be receiving appropriate antibiotic coverage. The skin overlying the bladder fossa was prepped and draped in usual sterile fashion. Anesthetic was administered with 1% lidocaine subcutaneously. The adjacent splenic flexure of the colon was identified. An 8
[2024-01-28] MEDS: ACETAMINOPHEN 325 MG TABLET 650 MG PO (16:30)
== END 2024-01-28 16:40 | disposition home or self-care (01) | DRG 394 ==
LOC: ANHED 20:36 → ANH3MED 21:13
PROVIDERS: Admitting Provider Surgery; Emergency Provider Physician Assistant; PCP Surgery; Visit Provider Nurse Practitioner Family
DX: K91.89 Other postprocedural complications and disorders of digestive system (principal); N17.9 Acute kidney failure, unspecified; R18.8 Other ascites; Z90.49 Acquired absence of other specified parts of digestive tract; E03.9 Hypothyroidism, unspecified; E78.5 Hyperlipidemia, unspecified
CPT/HCPCS: 10160; 36415; 71275; 74177; 78226; 80053; 83880; 84484; 85025; 85049; 85610; 85730; 87040; 87070; 87075; 87205; 93005; 96365; 96375; 99285; A9270; A9537; C1729; G0378; J2270; J2543; J7030; Q9967

== ENCOUNTER 2024-08-10 14:27 | Outpatient (CLI) | payer MEDICARE, SELFPAY ==
--- NOTE | ~2024-08-10 | MM_ITS ---
EXAMINATION: MM screening [facility] BI [facility] HISTORY: Screening TECHNIQUE: Craniocaudal and mediolateral oblique 3-D tomosynthesis images were obtained and synthetic 2-D images were generated. CAD analysis was submitted and interpreted. COMPARISON: 04/04/2023 and dating back to BREAST PARENCHYMAL COMPOSITION: There are scattered areas of fibroglandular density. FINDINGS: Subcentimeter nodule within the upper outer quadrant of the left breast, stable from prior likely an intramammary lymph node. Stable parenchymal pattern without suspicious microcalcifications, architectural distortion, discrete masses or significant asymmetry. IMPRESSION: 1. No mammographic evidence of malignancy. 2. Recommend routine screening mammography in one year. BI-RADS Category 2: Benign finding(s). Reviewed, dictated and finalized at location A. OMER CONTACT REPRESENTATIVE
== END 2024-08-10 14:28 | disposition home or self-care (01) ==
LOC: ANHIMG 14:28
PROVIDERS: PCP Internal Medicine; Visit Provider Internal Medicine
DX: Z12.31 Encounter for screening mammogram for malignant neoplasm of breast (principal)
CPT/HCPCS: 77063; 77067

== ENCOUNTER 2025-03-30 23:48 | Emergency (ER) | payer MEDICARE, SELFPAY ==
--- NOTE | ~2025-03-30 | XR_ITS ---
EXAMINATION: XR chest 2V 03/31/2025 00:22 INDICATION: Chest pressure PROCEDURE: 2 view chest COMPARISON: 12/18/2023 FINDINGS: The lungs are clear. The cardiomediastinal silhouette is within normal limits. There are no pleural effusions. There is no pneumothorax suspected. IMPRESSION: 1: NO ACUTE CARDIOPULMONARY DISEASE. Reviewed, dictated and finalized at location A.
--- NOTE | 2025-03-30 23:50 | ECG_ITS ---
Test Date: 2025-03-30 23:56:39 Measurements Intervals [place] Rate: 77 P: 18 SD: 162 QRS: -26 QRSD: 95 T: 48 QT: 364 QTc: 413 Interpretive Statements SINUS RHYTHM INCOMPLETE RIGHT BUNDLE BRANCH BLOCK DELAYED PRECORDIAL R/S TRANSITION BASELINE ARTIFACT- I, II, III, AVR, AVL, AVF, V4-V5 BORDERLINE ECG Compared to ECG 01/26/2024 18:07:59 No significant changes Electronically Signed On 03-31-2025 06:17:25 CDT by Nhan Gonzalez D.O.
--- OUTSIDE RECORDS SUMMARY | 2025-03-30 23:52 | XMS_ITS | Clinical Summary ---
Author Organization [facility] [employer] Address [address] [place] [address] Care Team Providers Care Curriculum Designer Name Role Phone Yair Otoole Primary Care Provider [phone] Source Comments [facility] [employer],non-owned Affiliates and Associated Physician Practices is amultiple site organization consisting of ambulatory clinics and hospital sitesin [place], [place], [place] and [place]. This disclosure is being madepursuant to the Care Everywhere program and may not contain all information available regarding this patient. Last updated 18.[employer] Allergies No known active allergies Medications * Be aware that medications may not be up to date on this document. Alwaysverify current medications with the patient. LEVOTHYROXINE SODIUM PO Active Social History Tobacco Use Types Packs/Day Years Used Date Smoking Tobacco: Never Comments Unknown Sex and Gender Information Value Date Recorded Sex Assigned at Not on file Legal Sex Female 7:49 AM LATHE SPOTTER Gender Identity Not on file Sexual Orientation Not on file Last Filed Vital Signs Vital Sign Reading Time Taken Comments Blood Pressure 112/70 09/08/2016 2:31 PM LATHE SPOTTER Pulse 99 09/08/2016 2:31 PM LATHE SPOTTER Temperature 36.8 C (98.3 F) 09/08/2016 2:31 PM LATHE SPOTTER Respiratory Rate 16 09/08/2016 2:31 PM LATHE SPOTTER Oxygen Saturation 99% 09/08/2016 2:31 PM LATHE SPOTTER Inhaled Oxygen Concentration - - Weight 104.3 kg (230 lb) 09/08/2016 2:31 PM LATHE SPOTTER Height 177.8 cm (5' 10) 09/08/2016 2:31 PM LATHE SPOTTER Body Mass Index 33 09/08/2016 2:31 PM LATHE SPOTTER Plan of Treatment Health Maintenance Due Date Last Done Comments BONE DENSITY TESTING 1957 COLOGUARD (AGES 45-75) - COL ON CA SCREENING 1957 COLON MONITORING 1957 COLONOSCOPY - COLON CA SCREENING 1957 CT COLONOGRAPHY - COLON CA SCREENING 1957 Colorectal Cancer Screening 1957 FIT - COLON CA SCREENING 1957 FLEX SIG - COLON CA SCREENING 1957 LIPID TESTING 1957 MAMMOGRAM 1955 MEDICARE AWV 12 MONTHS 1957 HEPATITIS C SCREENING 12/05/1975 DTAP/TDAP/TD VACCINES (1 - Tdap) 1976 PNEUMOCOCCAL VACCINE 50+ (1 of 1 - PCV) 12/10/2007 ZOSTER VACCINE (1 of 2) 12/10/2007 COVID-19 VACCINE (1 - 2023-2 5 season) 2024 DEPRESSION SCREENING 08/19/2024 INFLUENZA VACCINE (#1) 2025 Respiratory Syncytial Virus (RSV) Vaccine Pt: or over 60 yrs (1 - 1-dose 75+ series) 2032 HEPATITIS B VACCINE Aged Out No longe r eligible based on patient's age to complete this topic HIB VACCINE Aged Out No longer eligi ble based on patient's age to complete this topic HPV VACCINE Aged Out No longer eligi ble based on patient's age to complete this topic MENINGOCOCCAL (Group B) VACC INE SHARED DECISION-MAKING Aged Out No longer eligibl e based on patient's age to complete this topic MENINGOCOCCAL GROUPS A/C/Y/W VACCINE Aged Out No longer eligible b ased on patient's age to complete this topic Insurance KARLA * Guarantor: [employer] Account Type Relation to Patient Date of Phone Billing Address Personal/Family [address] [place] [address] MEDICARE ANTHEM * Guarantor: NATE MAX Account Type Relation to Patient Date of Phone Billing Address Personal/Family [address] [place] [address] MEDICARE Member Subscriber Plan / Payer (Ef fective for All Dates) Name:Ernestoisabelle Nate s Member ID:[id number] Relation to Subscriber:Self Name:Ernestoisabelle Nate s Subscriber ID:[id number] Payer ID:Not on file Group ID:Not on file Type:Medicare Address: [place] [phone] ANTHEM * Guarantor: NATE MAX Type Relation to Patient Date of Phone Billing Address Personal/Family [address] [place] [address] MEDICARE [facility] Care Teams Curriculum Designer Relationship Specialty Start Date End Date Yair Otoole DO [address] [facility] [address] [place] [address] PCP - General Internal Medicine 09/08/16
--- OUTSIDE RECORDS SUMMARY | 2025-03-30 23:52 | XMS_ITS | Clinical Summary ---
Author Organization [facility] Address [address] [place] [address] Care Team Providers Care Bi Data Architect Name Role Phone No, Physician Primary Care Provider [phone] Allergies Active Allergy Reactions Criticality Noted Date Comments Oxycodone Hallucinations Medium 03/15/2025 Medications levothyroxine (SYNTHROID) 125 mcg tablet 03/11/20 25 Active mupirocin (BACTROBAN) 2 % ointmentIndica tions:Abscess of groin Apply topically 3 (three) times a day 22 g 03/15/20 25 Active levothyroxine (SYNTHROID) 100 mcg tablet Take 100 mcg by mouth daily 11/12/19 22 025 Discontinued doxycycline (VIBRAMYCIN) 100 mg capsuleIndicat ions:Abscess of groin Take 1 tablet/capsul e (100 mg total) by mouth 2 (two) times a day for 10 days 20 tablet/capsu le 03/15/20 25 025 Active Problems Problem Noted Date Diagnosed Date Closed fracture of head of radius 03/24/2012 Encounters Date Type Department Care Team Description 03/15/2025 10:30 AM CDT Office Visit [facility] at [address] [address] Poornima Greene NP Abscess of groin (Primary Dx); Ear pressure, left 03/15/2025 10:22 AM CDT - 03/15/2025 11:59 PM CDT Hospital Encounter [address] [id number] Abscess of groin Discharge Disposition: Discharge to home or self care from Last 3 Months Surgical History Surgery Date Site/Laterality Comments FLUORO GUIDED ASPIRATION OR INJECTION LARGE JOINT BILATERAL 01/23/2022 Bilateral Social History Tobacco Use Types Packs/Day Years Used Date Smoking Tobacco: Never Comments Unknown Sex and Gender Information Value Date Recorded Sex Assigned at Not on file Legal Sex Female 1:11 PM DEVELOPMENT DIRECTOR Gender Identity Not on file Sexual Orientation Not on file Obstetrics History Last Filed Vital Signs Vital Sign Reading Time Taken Comments Blood Pressure 133/73 03/15/2025 10:02 AM CDT Pulse 77 03/15/2025 10:02 AM CDT Temperature 36.6 C (97.8 F) 03/15/2025 10:02 AM CDT Respiratory Rate 21 03/15/2025 10:02 AM CDT Oxygen Saturation 99% 03/15/2025 10:02 AM CDT Inhaled Oxygen Concentration - - Weight 110 kg (242 lb 8 oz) 03/15/2025 10:02 AM CDT Height 175.3 cm (5' 9) 03/15/2025 10:02 AM CDT Body Mass Index 35.81 03/15/2025 10:02 AM CDT Plan of Treatment Health Maintenance Due Date Last Done Comments Breast Cancer Screening-Mammogram 1957 Colon Cancer Screening-Colonoscopy 1957 Depression Screening 1957 Fall Risk Assessment 1957 Hepatitis C Screening 1957 Osteoporosis Screening-Bone Density Scan 1957 Hepatitis B Screening 12/10/1975 Pneumococcal vaccine 65+ (1 of 1 - PCV) 12/10/2007 Zoster Vaccine (1 of 2) 12/10/2007 Well Visit 65+ 2022 Influenza Vaccine (#1) 2025 DTaP/Tdap/Td Vaccine (2 - Td or Tdap) 09/04/2033 Procedures Procedure Name Priority Date/Time Associated Diagnosis Comments AEROBIC AND ANAEROBIC CULTURE AND GRAM STAIN Routine 03/15/2025 10:00 AM CDT Abscess of groin from Last 3 Months Results * Aerobic and anaerobic culture and gram stain Abscess Groin (03/15/2025 10:00 AM CDT) Direct Specimen Exam Stain: No polymorphonuclear leukocytes seen. No organisms seen. Comment:Testing performed by : [facility], [address] [place]., [address] Report Final Report: Rare Mixed skin microorganisms. SASHA Comment:Testing performed by : [facility], [address] [place]., [address] Organism MIXED SKIN MICROORGANISMS. SASHA Abscess (Groin) 03/15/2025 1 0:00 AM CDT 03/15/2025 4:52 PM CDT Narrative SASHA - 03/18/2025 10:39 AM CDT Specimen received on an ESwab. Testing performed by [facility] ([phone]) Specimens submitted from normally sterile body sites will have all bacterial morphotypes identified. Specimens that contain grossly mixed janna and/or are from body sites that are not normally sterile will be examined for Staphylococcus aureus, Pseudomonas aeruginosa, beta-hemolytic strep, vancomycin-resistant Enterococcus, Bacteroides, Parabacteroides, Clostridium perfringens and fungus. If any of these are isolated, the organism will be reported. Current interpretive data was last revised on 2019. Poornima Greene NP LAB MICROBIOLOGY - GENERAL ORD ERABLES Final Result SASHA [id number] Department [place] [address] from Last 3 Months Insurance BL CHOICE [place] PPO [place] BLUE [place] MEDICARE SUPP[place] [address] MEDICARE [facility] MEDICARE SUPPLEMENT BL CHOICE [facility] PPO [place] Care Teams Bi Data Architect Relationship Specialty Start Date End Date No, Physician PCP - General 12/26/21
[2025-03-30 23:59] VITALS: BP 150/70; PULSE 96; RESP 18; TEMP 36.4; O2SAT 100
[2025-03-31 00:20] LABS: INR 0.9; Partial Thromboplastin Time 25.7 Seconds (22.3-36.8); Prothrombin Time 12.4 Seconds (11.1-14.7)
[2025-03-31 00:25] LABS: Hematocrit 42.4 % (37.0-47.0); Hemoglobin 13.7 g/dL (12.0-15.0); Immature Granulocyte Percent A 4.2 % (0-0.5); Lymphocytes Absolute Auto 2.73 K/mm3 (0.9-3.2); Mean Corpuscular HGB Conc 32.3 g/dl (32-36); Mean Corpuscular Hemoglobin 30.6 pg (26-34); Mean Corpuscular Volume 94.9 fl (80-100); Nucleated Red Blood Cells Absolute Auto 0.000 K/mm3 (0.0-0.012); Nucleated Red Blood Cells Perc 0.0 % (0.0-0.2); Platelet Count Result 226 k/mm3 (150-375); Red Blood Count 4.47 M/mm3 (4.2-5.4); White Blood Count 6.6 K/mm3 (4.5-10.0)
[2025-03-31 00:28] LABS: Alanine Aminotransferase 27 U/L (6-35); Albumin Level 4.2 g/dL (3.5-5.1); Alkaline Phosphatase 62 U/L (38-126); Anion Gap 8 mmol/L (4-12); Aspartate Amino Transferase 40 U/L (14-36); Bilirubin,Total 0.3 mg/dL (0.2-1.3); Blood Urea Nitrogen 16 mg/dL (7-17); Calcium 9.0 mg/dL (8.4-10.2); Carbon Dioxide 25 mmol/L (22-30); Chloride 100 mmol/L (98-107); Estimated CRCL calculation 56 ml/min; Estimated Glomerular Filt Rate 47; Glucose 100 mg/dL (65-110); Lipase 79 U/L (23-300); Potassium 3.8 mmol/L (3.4-5.0); Sodium 133 mmol/L (137-145); Total Protein 7.4 g/dL (6.3-8.2)
[2025-03-31 00:35] LABS: Troponin I < 0.012 ng/mL (0.000-0.034)
[2025-03-31 02:10] VITALS: PULSE 73
--- NOTE | 2025-03-31 02:41 | ECG_ITS ---
Test Date: 2025-03-31 02:46:51 Measurements Intervals [place] Rate: 67 P: 12 HI: 167 QRS: -23 QRSD: 96 T: 39 QT: 390 QTc: 414 Interpretive Statements SINUS RHYTHM LOW QRS VOLTAGE IN PRECORDIAL LEADS INCOMPLETE RIGHT BUNDLE BRANCH BLOCK DELAYED PRECORDIAL R/S TRANSITION BASELINE ARTIFACT- I, II, AVR, AVL BORDERLINE ECG Compared to ECG 03/30/2025 23:56:39 NO SIGNIFICANT CHANGE Electronically Signed On 03-31-2025 06:19:36 CDT by Nhan Gonzalez D.O.
--- NOTE | 2025-03-31 02:46 | ED.CHESTPAIN ---
HPI - Chest Pain General Chief Complaint: Chest Pain Stated Complaint: chest pressure Time Seen by Provider: 03/31/25 02:06 History of Present Illness HPI narrative: 69-year-old female presenting to the emergency room with epigastric/chest discomfort. Patient states she felt a tight squeezing sensation in the center of her chest and she took 4 baby aspirin at home. Sensation relieved itself prior to arrival. Denies any associated symptoms such as shortness of breath, nausea, vomiting, diarrhea, fever, chills, back pain venous or syncope. States she has had similar symptoms before which were unexplained and she was not able to get any answers on diagnostic testing. No cardiac disease history to her knowledge. She was otherwise in her normal state of health. She is asymptomatic during arrival to the emergency department and during my initial assessment after triage. Related Data Home Medications ?Medication ?Instructions ?Recorded ?Confirmed ?Last Taken ?Type estradiol 1 applic vaginal DAILY 10/23/23 11/18/24 Unknown History liothyronine 5 mcg tablet 5 mcg PO DAILY 10/23/23 11/18/24 01/20/24 History prasterone (DHEA) 25 mg capsule 25 mg PO DAILY 10/23/23 11/18/24 01/20/24 History (DHEA) progesterone micronized 200 mg 200 mg PO QHS 10/23/23 11/18/24 Unknown History capsule turmeric 400 mg capsule 400 mg PO DAILY 01/15/24 11/18/24 Unknown History Allergies Allergy/AdvReac Type Severity Reaction Status Date / Time oxycodone AdvReac Confusion Verified 11/18/24 13:23 Review of Systems Review of Systems: As reviewed above in HPI [facility] Past Medical History Medical History BMI 34.0-34.9,adult Pure hypercholesterolemia Other malaise Otalgia, unspecified ear Dietary counseling and surveillance (09/30/15) Compression fracture Hypothyroidism Hyperlipidemia Surgical History Surgical History History of laparoscopic cholecystectomy 01/20/24 - laparoscopic cholecystectomy with extensive intraoperative laparoscopic adhesiolysis History of elbow surgery Family History Family History Father Patient's father is Congestive heart failure Mother Social History Social History Smoking status: Never smoker Second hand tobacco smoke exposure: Yes Alcohol intake: current Substance use: never Substance use type: does not use Do You Feel Safe in your Home?: Yes Lack of Transportation: No Lack of Food: Never True Current Housing: I Have Housing Concerned About Future Housing: No Difficulty Paying Gas/Electric Bills: No Difficulty Paying for Meds: No Currently Unemployed: No Education: Bachelor's Degree Difficulty w/ Childcare or Family Care: No Living arrangements: with family Occupation/Education: retired 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 Mucous membranes moist. NECK: Supple. CHEST: [Clear to auscultation. No respiratory distress.] HEART: [Regular rate and rhythm]. No murmur heard. [Normal peripheral pulses.] ABDOMEN: [Soft, nondistended], [nontender], [No rigidity or guarding] EXTREMITIES: Normal range of motion. [No edema.] SKIN: Warm, dry, no rash. NEURO: [No focal deficits]. Alert and oriented [x3.] PSYCH: [Normal mood and affect.] Course Vital Signs Vital signs: Vital Signs Temperature 36.4 C 03/30/25 23:59 Pulse Rate 96 03/30/25 23:59 Respiratory Rate 18 03/30/25 23:59 Blood Pressure 150/70 H 03/30/25 23:59 Pulse Oximetry 100 03/30/25 23:59 Oxygen Delivery Room Air 03/30/25 23:59 Temperature 36.6 C 03/31/25 03:54 Pulse Rate 76 03/31/25 03:54 Respiratory Rate 18 03/31/25 03:54 Blood Pressure 147/72 H 03/31/25 03:54 Pulse Oximetry 99 03/31/25 03:56 Oxygen Delivery Room Air 03/31/25 03:56 MDM - Chest Pain MDM Narrative Medical decision making narrative: 69-year-old female presenting to the emergency room with epigastric/chest discomfort. Patient states she felt a tight squeezing sensation in the center of her chest and she took 4 baby aspirin at home. Sensation relieved itself prior to arrival. Denies any associated symptoms such as shortness of breath, nausea, vomiting, diarrhea, fever, chills, back pain venous or syncope. States she has had similar symptoms before which were unexplained and she was not able to get any answers on diagnostic testing. No cardiac disease history to her knowledge. She was otherwise in her normal state of health. She is asymptomatic during arrival to the emergency department and during my initial assessment after triage. Patient is not in any acute physical or respiratory distress and is asymptomatic. She is unremarkable reassuring physical exam findings. 2+ symmetric pulses, warm extremities. No pitting edema or calf asymmetry. She has reassuring vital signs with some mild hypertension but no severe range. No tachycardia, tachypnea, fever or hypoxia. Symptoms could be musculoskeletal in nature, less likely ACS but potential musculoskeletal versus GERD. Low suspicion cardiac or pulmonary pathology. No risk factors for DVT or heart failure but patient states that she had some mild leg swelling recently although not evident on exam. ACS workup with serial troponins, EKG, chest x-ray, D-dimer, BNP and electrolyte panel obtained. She was placed on quality assurance monitor final and pulse oximetry and re-evaluated. Cardiac workup is unremarkable. Negative D-dimer, negative BNP, negative initial and 3 hour troponin. Chest x-ray without any acute findings. EKG without any ischemic evidence. Patient is hemodynamically stable and asymptomatic. Patient is safe for discharge home at this time with further risk stratification with primary care provider follow-up. Medical Records Data Attestation: I reviewed the patient's medical records. Lab Data Attestation: I reviewed the patient's lab results. 03/31/25 00:02 03/31/25 00:02 Labs: Lab Results 03/31/25 03/31/25 Range/Units 00:02 02:45 WBC 6.6 (4.5-10.0) K/mm3 RBC 4.47 (4.2-5.4) M/mm3 Hgb 13.7 (12.0-15.0) g/dL Hct 42.4 (37.0-47.0) % MCV 94.9 (80-100) fl MCH 30.6 (26-34) pg MCHC 32.3 (32-36) g/dl RDW 12.6 (11.5-14.5) % Plt Count 226 (150-375) k/mm3 MPV 9.2 (7.4-10.4) fl Immature Gran % (Auto) 4.2 H (0-0.5) % Neut % (Auto) 41.4 L (45.5-73.1) % Lymph % (Auto) 41.3 (18.3-44.2) % Castro % (Auto) 8.2 (2.6-8.5) % Eos % (Auto) 3.8 (0-4.4) % Baso % (Auto) 1.1 (0.2-1.2) % Lymph # (Auto) 2.73 (0.9-3.2) K/mm3 Castro # (Auto) 0.5 (0.1-0.6) K/mm3 Eos # (Auto) 0.3 (0-0.3) K/mm3 Baso # (Auto) 0.1 (0.0-0.1) K/mm3 Abs Immat Gran (auto) 0.28 H (0.00-0.031) K/mm3 Absolute Neuts (auto) 2.7 (1.3-6.7) K/mm3 Absolute Nucleated RBC 0.000 (0.0-0.012) K/mm3 Nucleated RBC % 0.0 (0.0-0.2) % PT 12.4 (11.1-14.7) Seconds INR 0.9 APTT 25.7 (22.3-36.8) Seconds D-Dimer 0.30 (<0.48) ug/mL Sodium 133 L (137-145) mmol/L Potassium 3.8 (3.4-5.0) mmol/L Chloride 100 (98-107) mmol/L Carbon Dioxide 25 (22-30) mmol/L Anion Gap 8 (4-12) mmol/L BUN 16 (7-17) mg/dL Creatinine 1.16 H (0.7-1.0) mg/dL Estim Creat Clear Calc 56 ml/min Estimated GFR 47 L (59 - ) Glucose 100 (65-110) mg/dL Calcium 9.0 (8.4-10.2) mg/dL Total Bilirubin 0.3 (0.2-1.3) mg/dL AST 40 H (14-36) U/L ALT 27 (6-35) U/L Alkaline Phosphatase 62 (38-126) U/L Troponin I < 0.012 < 0.012 (0.000-0.034) ng/mL NT-Pro-B Natriuret Pep 99 (19.9-100) pg/mL Total Protein 7.4 (6.3-8.2) g/dL Albumin 4.2 (3.5-5.1) g/dL Lipase 79 (23-300) U/L Imaging Data Attestation: I personally reviewed and interpreted this imaging study as follows: My impression: No acute findings Discharge Plan Discharge Clinical Impression: Chest pain Patient Disposition: Home Condition: Stable Instructions: Antibiotic Form, Chest Pain (ED) Additional Instructions: Your cardiac workup is unrevealing here. No signs of any cardiac damage, no signs of any blood clot, pneumonia, lung collapse, or any other acute urgent or emergent concerns today. Follow-up with regular primary care provider regarding her ER visit. Return with any emergent concerns. Patient Language: Hebrew Prescriptions: No Action progesterone micronized 200 mg capsule 200 mg PO QHS prasterone (DHEA) [DHEA] 25 mg capsule 25 mg PO DAILY liothyronine 5 mcg tablet 5 mcg PO DAILY estradiol 1 applic vaginal DAILY Rx Instructions: 16/20mg cream turmeric 400 mg Capsule 400 mg PO DAILY levothyroxine 125 mcg tablet 125 mcg PO DAILY Qty: 90 3RF Follow-up/Referrals: PHYSICIAN,RETAIL PRODUCT DEMO SPECIALIST [Primary Care Provider] - Time of Disposition: 04:03
[2025-03-31 03:16] LABS: Troponin I < 0.012 ng/mL (0.000-0.034)
--- OUTSIDE RECORDS SUMMARY | 2025-03-31 03:24 | XMS_ITS | Clinical Summary ---
Author Organization [facility] Address [address] [place] [address] Care Team Providers Care Truck Driver Name Role Phone No, Physician Primary Care Provider [phone] Allergies Active Allergy Reactions Criticality Noted Date [...] Description 03/15/2025 10:30 AM CDT Office Visit [facility] at [address] [address] Poornima Greene NP Abscess of groin (Primary Dx); Ear pressure, left 03/15/2025 10:22 AM CDT - 03/15/2025 11:59 PM CDT Hospital Encounter [address] [id number] Abscess of groin Discharge Disposition: Discharge to home or self care from Last 3 Months Surgical History Surgery Date Site/Laterality Comments FLUORO GUIDED ASPIRATION OR INJECTION LARGE JOINT BILATERAL 01/23/2022 Bilateral Social History Tobacco Use Types Packs/Day Years Used Date Smoking Tobacco: Never Comments Unknown Sex and Gender Information Value Date Recorded Sex Assigned at Not on file Legal Sex Female 1:11 PM BODY SANDER Gender Identity Not on file Sexual Orientation [...] No organisms seen. Comment:Testing performed by : [facility], [address] [place]., [address] Report Final Report: Rare Mixed skin microorganisms. SASHA Comment:Testing performed by : [facility], [address] [place]., [address] Organism MIXED SKIN MICROORGANISMS. SASHA Abscess (Groin) 03/15/2025 1 0:00 AM CDT 03/15/2025 4:52 PM CDT Narrative SASHA - 03/18/2025 10:39 AM CDT Specimen received on an ESwab. Testing performed by [facility] ([phone]) Specimens submitted from normally sterile body sites [...] - GENERAL ORD ERABLES Final Result SASHA [id number] Department [place] [address] from Last 3 Months Insurance BL CHOICE PRF PPO [place] BLUE [place]OSS MEDICARE SUPPLE[place] [address] MEDICARE [facility] MEDICARE SUPPLEMENT BL CHOICE [facility] PPO [place] Care Teams Truck Driver Relationship Specialty Start Date End Date No, Physician PCP - General 12/26/21
--- OUTSIDE RECORDS SUMMARY | 2025-03-31 03:24 | XMS_ITS | Clinical Summary ---
Author Organization [facility] [employer] Address [address] [place] [address] Care Team Providers Care Transition Mgr Name Role Phone Yair Otoole Primary Care Provider [phone] Source Comments [facility] [employer],non-owned Affiliates and Associated Physician Practices is amultiple site organization consisting of ambulatory clinics and hospital sitesin [place], [place], [place] and [place]. This disclosure is being madepursuant to the Care Everywhere program and may not contain all information available regarding this patient. Last updated 18.[place] [employer] Allergies No known active allergies Medications * Be aware that medications may not be up to date on this document. Alwaysverify current medications with the patient. LEVOTHYROXINE SODIUM PO Active Social History Tobacco Use Types Packs/Day Years Used Date Smoking Tobacco: Never Comments Unknown Sex and Gender Information Value Date Recorded Sex Assigned at Not on file Legal Sex Female 7:49 AM HOUSECLEANER FLOOR Gender Identity Not on file Sexual Orientation Not on file Last Filed Vital Signs Vital Sign Reading Time Taken Comments Blood Pressure 112/70 09/08/2016 2:31 PM HOUSECLEANER FLOOR Pulse 99 09/08/2016 2:31 PM HOUSECLEANER FLOOR Temperature 36.8 C (98.3 F) 09/08/2016 2:31 PM HOUSECLEANER FLOOR Respiratory Rate 16 09/08/2016 2:31 PM HOUSECLEANER FLOOR Oxygen Saturation 99% 09/08/2016 2:31 PM HOUSECLEANER FLOOR Inhaled Oxygen Concentration - - Weight 104.3 kg (230 lb) 09/08/2016 2:31 PM HOUSECLEANER FLOOR Height 177.8 cm (5' 10) 09/08/2016 2:31 PM HOUSECLEANER FLOOR Body Mass Index 33 09/08/2016 2:31 PM HOUSECLEANER FLOOR Plan of Treatment Health Maintenance Due Date [...] Address Personal/Family [address] [place] [address] MEDICARE ANTHEM * Guarantor: NATE MAX Account Type Relation to Patient Date of Phone Billing Address Personal/Family [address] [place] [address] MEDICARE Member Subscriber Plan / Payer (Ef fective for All Dates) Name:Ernestoisabelle Nate s Member ID:[id number] Relation to Subscriber:Self Name:Ernestoisabelle Nate s Subscriber ID:[id number] Payer ID:Not on file Group ID:Not on file Type:Medicare Address: [place] [phone] ANTHEM * Guarantor: NATE MAX Type Relation to Patient Date of Phone Billing Address Personal/Family [address] [place] [address] MEDICARE [facility] Care Teams Transition Mgr Relationship Specialty Start Date End Date Yair Otoole DO [address] [facility] [address] [place] [address] PCP - General Internal Medicine 09/08/16
[2025-03-31 03:45] LABS: NT Pro B Type Natriuretic Pept 99 pg/mL (19.9-100)
[2025-03-31 03:54] VITALS: BP 147/72; PULSE 76; RESP 18; TEMP 36.6; O2SAT 99
[2025-03-31 03:56] VITALS: O2SAT 99
== END 2025-03-31 04:28 | disposition home or self-care (01) ==
PROVIDERS: Emergency Provider Student in an Organized Health Care Education/Training Program
DX: R07.9 Chest pain, unspecified (principal); E03.9 Hypothyroidism, unspecified; E78.5 Hyperlipidemia, unspecified; Z79.899 Other long term (current) drug therapy; Z79.82 Long term (current) use of aspirin
CPT/HCPCS: 36415; 71046; 80053; 83690; 83880; 84484; 85025; 85380; 85610; 85730; 93005; 99284